=== PATIENT | male | born 1945 | race Caucasian/White ===

== ENCOUNTER 2024-02-08 22:49 | Outpatient (BNV) | payer MEDICARE, SELFPAY | END 2024-02-09 08:00 | PROVIDERS: Admitting Provider Clinical Nurse Specialist Psychiatric/Mental Health; PCP Internal Medicine; Visit Provider Internal Medicine | DX: R00.1 Bradycardia, unspecified (principal) | CPT/HCPCS: 93010 ==

== ENCOUNTER 2024-02-08 22:49 | Inpatient (IN) | payer MEDICARE, SELFPAY ==
[2024-02-09 01:17] LABS: Glucose, Whole Blood 114 mg/dL (60-115)
[2024-02-09 01:21] VITALS: BP 134/73; PULSE 62; RESP 18; TEMP 36; O2SAT 99
[2024-02-09 01:24] VITALS: BMI 19.8
--- NOTE | 2024-02-09 01:44 | PC.ADMIT ---
Ad[facility] these 79 years [facility] accompanied by ambulance staff. Pt signed the CV. Patient is oriented to the unit, staff and room. Pt is alert and oriented to person, place and year and forgets the date. Pt is pleasant on approached, cooperative w/ the admission process. Pt denies SI/HI/anxiety/depression/delusions/hallucinations/paranoia/pain and feels safe in the unit. Pt said he wears eyeglasses for reading but did not bring it here. Pt has his own teeth. Pt has an old bruise in the L. arm, small red scab area on his middle back and buttocks pink, no open areas, No edema noted on lower extremities. In between the 1st and 2nd finger there is a big soft hump area, no redness and no pain. Pt said he had that for 15 yrs already. Pt denies SOB/ cough. SPO2 IS 99% at RA. Pt. w/ extensive complicated medical history of coronary artery disease status post CABG, complete heart block status post PPM, history of gangrenous cholecystitis status post laparoscopic partial cholecystectomy complicated by C. 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 Per report pt previously had episode of psychosis w/ [facility] stay. Was discharged on Risperidone and eventually stopped taking this and over the last few weeks home health nurses have noticed that he has been off he has been paranoid stating that people are recording him and that the neighbors are getting into their stuff. Pt ambulates independently using a walker w/ unsteady gait at times. Pt said he fell twice at home recently Pt said he needs assist only in bathing and goes to the BR by himself. We'll continue to monitor patient.
[2024-02-09 07:40] VITALS: BP 147/90; PULSE 75; RESP 16; TEMP 36.1; O2SAT 99
--- NOTE | 2024-02-09 08:00 | ECG_ITS ---
Test Reason : new admit Blood Pressure : / mmHG Vent. Rate : 059 BPM Atrial Rate : 059 BPM P-R Int : 160 ms QRS Dur : 130 ms QT Int : 484 ms P-R-T Axes : 058 -40 053 degrees QTc Int : 479 ms Sinus bradycardia Left axis deviation Right bundle branch block Inferior infarct , age undetermined Abnormal ECG No previous ECGs available Referred By: Christina Jimenez Electronically Signed By:TEGAN RODRIGEZ
[2024-02-09 09:16] LABS: Glucose, Whole Blood 125 mg/dL (60-115)
--- NOTE | 2024-02-09 13:51 | P.HPPS_ITS ---
[facility] Date of Service: 02/09/24 Chief Complaint: Unspecified Schizophrenia Spectrum and other Psych Sources of Information: patient interviewed, chart reviewed and crisis/core team assessment reviewed HPI Subjective Notes: Torres Warning and Conditional Voluntary Narrative: The patient is a 79-year-old male, single, with no children, living with a friend, referred from the emergency room of [facility] after his friend brought him to the emergency room. Apparently the patient was admitted into the hospital for psychosis and he had been on compliant with Risperdal. According to the crisis assessment the patient complained of paranoia, auditory hallucinations stating that people are recording him. He was assessed by the crisis team and transferring to this facility for psychiatric stabilization. According to the crisis assessment, his friend Salvador, was advocating for a geriatric psychiatric admission for treatment and diagnosis clarification. The patient has several medical comorbidities such as CVA, diabetes, VPA and past history of cardiovascular surgery several years ago. During the intake interview, the patient was very pleasant, cooperative but he looks confused. He stated that he was brought to the emergency room by a friend, he does not know exactly why he was brought here. At the moment of the intake interview the patient adamantly denies auditory hallucinations, visual hallucinations or paranoia but he looks internally preoccupied. The patient was able to contract for safety, he was a very poor historian but we will try to get more collateral information. He understood why he was here and he understood torres warning after I explained him. Past Psychiatric History: According to the crisis assessment, he had 2 prior psychiatric admissions 1 10 years ago at [facility] and 5 years ago [facility]. Also he had a geriatric unit admission. Apparently his mental status deteriorated after the open surgery that he had 5 years ago. Medical Evaluation Reviewed: Yes [facility] Narrative: History of CVA Diabetes BPH Family History: As per Salvador, the patient's family has history of Alzheimer's Social History: The patient has never been , he lives with his girlfriend and adult girlfriend's son Salvador who is the primary caregiver. 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 He has never been no children no social support provided by the family. Substance History: Denies Trauma History: Denies Diagnostics Vital Signs (24Hr): Vital Signs - 24 hr 02/09/24 01:21 02/09/24 07:40 Temperature 96.8 F 96.9 F Pulse Rate 62 75 Respiratory Rate 18 16 Blood Pressure 134/73 147/90 H Pulse Oximetry 99 99 Oxygen Delivery Method Room Air Room Air BMI result Body Mass Index 19.8 Labs Labs: Laboratory Results - last 48 hr 02/09/24 02/09/24 01:06 09:13 POC Glucose 114 125 H Meds/Allergies Meds Home Medications ?Medication ?Instructions ?Recorded ?Confirmed ?Type acetaminophen 650 mg tablet 650 mg PO Q8H PRN Pain 02/09/24 02/09/24 History amoxicillin 875 mg-potassium 1 tab PO Q12H 02/09/24 02/09/24 History clavulanate 125 mg tablet apixaban 5 mg tablet (Eliquis) 5 mg PO BID 02/09/24 02/09/24 History aspirin 81 mg tablet 81 mg PO DAILY 02/09/24 02/09/24 History atorvastatin 40 mg tablet 40 mg PO DAILY 02/09/24 02/09/24 History carvedilol 12.5 mg tablet 12.5 mg PO DAILY 02/09/24 02/09/24 History docusate sodium 100 mg capsule 100 mg PO BID PRN Constipation 02/09/24 02/09/24 History ibuprofen 400 mg tablet 400 mg PO Q8H PRN Pain (Scale 02/09/24 02/09/24 History Score 4-6) lorazepam 1 mg tablet (Ativan) 1 mg PO TID PRN Anxiety 02/09/24 02/09/24 History melatonin 3 mg tablet 9 mg PO BEDTIME PRN Insomnia 02/09/24 02/09/24 History risperidone 0.5 mg tablet 0.5 mg PO BID 02/09/24 02/09/24 History sennosides 8.6 mg tablet (senna) 8.6 mg PO BID PRN Constipation 02/09/24 02/09/24 History sertraline 25 mg tablet 25 mg PO DAILY 02/09/24 02/09/24 History sertraline 50 mg tablet 50 mg PO DAILY 02/09/24 02/09/24 History Allergies Allergies Allergy/AdvReac Type Severity Reaction Status Date / Time No Known Allergies Allergy Verified 02/09/24 02:40 Mental Status Exam Mental Status Exam Patient Appearance: Appropriate Patient Orientation: Person and Situation Level of Consciousness: Awake and Appropriate Patient Behavior: Guarded and Passive Mood Description: Withdrawn Affect Description: Constricted Patient Cognition Impaired: Yes Ability to Follow Directions: Good Speech Pattern: Clear Hallucinations: None Delusions: Paranoid Ideation and Ideas of Reference Thought Process: Distracted and Slowed Thinking Thought Content: positive for Reading and positive for Poverty of Content Judgement: Fair Assessment & Plan Assessment & Plan (1) Psychosis: Status: Acute Code(s): F29 - Unspecified psychosis not due to a substance or known physiological condition (2) Dementia: Status: Acute Code(s): F03.90 - Unspecified dementia, unspecified severity, without behavioral disturbance, psychotic disturbance, mood disturbance, and anxiety Plan The patient is an elderly male with a past history of psychosis in the past, dementia and several medical comorbidities the was brought to the emergency room by his closed caregivers explaining that he relapse on psychosis due to noncompliance with Risperdal. He was assessed by crisis and transferring to this facility for psychiatric stabilization. Plan 1. Gather collateral information, the patient is a very poor historian but he is able to contract for safety and he signed a conditional voluntary. 2. Keep on 50 minute checks since the patient was able to contract for safety. 3. Continue with medical workout. 4. Reassessment with results. 5. I review his home meds and he has not on any Risperdal. We start with a slow titration of Risperdal 0.5 p.o. b.i.d. to target psychosis Patient educated on: diagnosis Reason for continued inpatient stay Substantial Risk for: inability to function, rapid decompensation and med/psych decompensation Statement Statement: I have reviewed the history and physical and performed a pertinent examination on my patient. No changes have occurred unless specified. If the History and Physical was not performed prior to admission, the Hospitalist's service will be consulted for completing the admission physical. Time Spent With Patient Time: Total time managing care of this patient today __45__ minutes.
--- NOTE | 2024-02-09 18:05 | HO.PM.IMCN ---
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 Patient apparently had been complaining of auditory hallucinations and paranoia, thinking that he was being recorded. Medical consult for admission H&P. ?Patient has no acute medical complaints at this time. Was calm and cooperative. Denies chest pain/pressure, palpitations. No shortness of breath. Denied fever, chills, nausea, vomiting, abdominal pain. No change to bowel or bladder habits. Denied headache or acute vision changes. EKG reviewed which showed sinus bradycardia of 59 with RBBB and no signs of significant ST elevations or depressions. Review of Systems Review of Systems: Patient has no acute medical complaints at this time. [facility] Medical History (Updated 02/09/24 @ 19:00 by ALEJANDRO Queen) Depression Anxiety Empyema FH: cholecystectomy Cholecystitis CAD (coronary artery disease) Complete heart block Surgical History (Updated 02/09/24 @ 18:59 by ALEJANDRO Queen) S/P CABG (coronary artery bypass graft) Status post cardiac pacemaker procedure Social History Household Members: Friend(s) Housing: House Do you presently have visiting nurse or other home services: No Patient Tobacco Use Status: Never used Tobacco Smoked in Last 30 Days: No e-Cigarette/Vaping Use: Never Used Patient Interested in Nicotine Replacement: No Patient Given Instructions on How to Stop Smoking: No Second Hand Smoke Exposure: No Use of substances other than those prescribed or required for medical reasons: No Substance Use Type: Unknown Currently Displaying Signs/Symptoms of Drug Intoxication Withdrawal: No Any prior treatment program specific to substance use: No Have you been hit, kicked, punched, or otherwise hurt by someone within the past year? If so, by whom?: No Do you feel safe in your current relationship?: Yes Is there a partner from a previous relationship who is making you feel unsafe now?: No Are you made to feel afraid or neglected: No Advance Directives: No Advance Directives Information Provided: No Do you have thoughts of harming others: None Do you have a plan to hurt others: No Plan Recently lost weight without trying: No Eating poorly because of decreased appetite: No Nutrition Risks: No Nutritional Risk Poor oral hygiene: No service: No Sexual orientation: Straight/Heterosexual Meds Allergies Allergy/AdvReac Type Severity Reaction Status Date / Time No Known Allergies Allergy Verified 02/09/24 02:40 Active Medications: Current Medications Al Hydroxide/Mg Hydroxide (Magnesium Hydrox/Alum Hydrox 30 Ml Oral.Susp) 30 ml PO Q6H PRN PRN Reason: Heartburn/Nausea Apixaban (Apixaban 5 Mg Tablet) 5 mg PO BID ETHAN Aspirin (Aspirin Enteric Coated 81 Mg Tablet.Dr) 81 mg PO DAILY ETHAN Atorvastatin Calcium (Atorvastatin Calcium 40 Mg Tablet) 40 mg PO DAILY ETHAN Carvedilol (Carvedilol 12.5 Mg Tablet) 12.5 mg PO DAILY ETHAN; Protocol Docusate Sodium (Docusate Sodium 100 Mg Capsule) 100 mg PO BID PRN PRN Reason: Constipation Lorazepam (Lorazepam 0.5 Mg Tablet) 0.5 mg PO Q8H PRN PRN Reason: Anxiety Lorazepam (Lorazepam 0.5 Mg Tablet) 0.5 mg PO TID PRN PRN Reason: Anxiety Melatonin (Melatonin 3 Mg Tablet) 3 mg PO BEDTIME ETHAN Melatonin (Melatonin 3 Mg Tablet) 9 mg PO BEDTIME PRN PRN Reason: Insomnia Nitroglycerin (Nitroglycerin 0.4 Mg Tab.Subl) 0.4 mg SUBLINGUAL Q5MX3 PRN PRN Reason: Angina Risperidone (Risperidone 0.5 Mg Tablet) 0.5 mg PO BID ETHAN Senna (Sennosides 8.6 Mg Tablet) 8.6 mg PO BID PRN PRN Reason: Constipation Sertraline HCl (Sertraline Hcl 25 Mg Tablet) 25 mg PO DAILY ETHAN Trazodone HCl (Trazodone Hcl 25 Mg Halftab) 25 mg PO BEDTIME MRX1 PRN PRN Reason: Insomnia Home Medications ?Medication ?Instructions ?Recorded ?Confirmed ?Last Taken ?Type acetaminophen 650 mg tablet 650 mg PO Q8H PRN Pain 02/09/24 02/09/24 Unknown History amoxicillin 875 mg-potassium 1 tab PO Q12H 02/09/24 02/09/24 Unknown History clavulanate 125 mg tablet apixaban 5 mg tablet (Eliquis) 5 mg PO BID 02/09/24 02/09/24 02/08/24 History aspirin 81 mg tablet 81 mg PO DAILY 02/09/24 02/09/24 02/08/24 History atorvastatin 40 mg tablet 40 mg PO DAILY 02/09/24 02/09/24 02/08/24 History carvedilol 12.5 mg tablet 12.5 mg PO DAILY 02/09/24 02/09/24 02/08/24 History docusate sodium 100 mg capsule 100 mg PO BID PRN Constipation 02/09/24 02/09/24 Unknown History ibuprofen 400 mg tablet 400 mg PO Q8H PRN Pain (Scale 02/09/24 02/09/24 Unknown History Score 4-6) lorazepam 1 mg tablet (Ativan) 1 mg PO TID PRN Anxiety 02/09/24 02/09/24 02/08/24 History melatonin 3 mg tablet 9 mg PO BEDTIME PRN Insomnia 02/09/24 02/09/24 02/07/24 History risperidone 0.5 mg tablet 0.5 mg PO BID 02/09/24 02/09/24 02/08/24 History sennosides 8.6 mg tablet (senna) 8.6 mg PO BID PRN Constipation 02/09/24 02/09/24 Unknown History sertraline 25 mg tablet 25 mg PO DAILY 02/09/24 02/09/24 02/08/24 History sertraline 50 mg tablet 50 mg PO DAILY 02/09/24 02/09/24 02/09/24 01:03 History Physical Exam Vital Signs and Narrative: Vital Signs: Last Vital Signs Temp 96.9 F 02/09/24 07:40 Pulse 75 02/09/24 07:40 Resp 16 02/09/24 07:40 BP 147/90 H 02/09/24 07:40 Pulse Ox 99 02/09/24 07:40 O2 Del Method Room Air 02/09/24 07:40 BMI result Body Mass Index 19.8 General: AOx3, no acute distress Resp: CTA bilaterally CVS: S1, S2, RRR GI: +BS, NT, no distention Skin: Warm, dry Neuro: Cranial nerves II-XII grossly intact bilaterally. 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 Patient apparently had been complaining of auditory hallucinations and paranoia, thinking that he was being recorded. Medical consult for admission H&P. ?Patient has no acute medical complaints at this time. Mood disorder Plan as per Psychiatry Chronic aortic graft infection Patient not a candidate for surgical intervention On lifelong suppression with antibiotics Continue Augmentin CAD/HLD Continue aspirin, statin Anticoagulation Unclear why pt is on Eliquis from chart and pt review Continue Eliquis Thank you for allowing us to participate in the care of this patient. Signing off at this time. Please re-consult if any acute complaints or issues arise.
[2024-02-09 20:00] VITALS: BP 155/83; PULSE 70; RESP 18; TEMP 36.4; O2SAT 99
[2024-02-09 20:24] LABS: Glucose, Whole Blood 125 mg/dL (60-115)
[2024-02-09] MEDS: Apixaban 5 MG TABLET PO (20:33)
[2024-02-09] MEDS: Melatonin 3 MG TABLET PO (20:33)
[2024-02-09] MEDS: risperiDONE 0.5 MG TABLET PO (20:33)
[2024-02-10 08:00] VITALS: BP 136/77; PULSE 84; RESP 18; O2SAT 99
[2024-02-10] MEDS: Sertraline HCL 25 MG TABLET PO (08:23)
[2024-02-10] MEDS: Aspirin Enteric Coated 81 MG TABLET.DR PO (08:23)
[2024-02-10 08:24] VITALS: BP 136/77; PULSE 84
[2024-02-10] MEDS: Apixaban 5 MG TABLET PO ×2 (08:24→20:40)
[2024-02-10] MEDS: carvediloL 12.5 MG TABLET PO (08:24)
[2024-02-10] MEDS: risperiDONE 0.5 MG TABLET PO (08:24)
[2024-02-10] MEDS: Amoxicillin/Potassium Clav 875 MG TABLET PO ×2 (08:24→20:40)
[2024-02-10] MEDS: Atorvastatin Calcium 40 MG TABLET PO (08:24)
--- NOTE | 2024-02-10 09:00 | HO.PSYCHPN ---
Subjective Subjective Date of Service: 02/10/24 Reason For Visit: Unspecified Schizophrenia Spectrum and other Psych Subjective Notes: Conditional Voluntary Interim History: The nursing staff reported the patient had been confused, paranoid, he verbalized to the night nurse that I do not trust you. He slept well. We found out that he is on chronic antibiotics for infection on his chronic cardiac infection. On interview the patient denies new symptoms, he looks internally preoccupied I am increasing Risperdal up to 1 mg p.o. b.i.d.. Mental Status Exam Mental Status Exam Patient Appearance: Appropriate Patient Orientation: Person Level of Consciousness: Awake Patient Behavior: Guarded and Passive Mood Description: Withdrawn Affect Description: Constricted Patient Cognition Impaired: Yes Ability to Follow Directions: Good Speech Pattern: Clear Hallucinations: None Delusions: Paranoid Ideation and Ideas of Reference Thought Process: Distracted and Slowed Thinking Thought Content: positive for [place] and positive for Poverty of Content Judgement: Fair Diagnostics Vital Signs (24Hr): Vital Signs - 24 hr 02/09/24 20:00 02/10/24 08:00 02/10/24 08:00 Temperature 97.5 F Pulse Rate 70 84 84 Respiratory Rate 18 18 18 Blood Pressure 155/83 H 136/77 136/77 Pulse Oximetry 99 99 99 Oxygen Delivery Method Room Air Room Air Room Air 02/10/24 08:24 Temperature Pulse Rate 84 Respiratory Rate Blood Pressure 136/77 Pulse Oximetry Oxygen Delivery Method BMI result Body Mass Index 19.8 Labs Labs: Laboratory Results - last 48 hr 02/09/24 02/09/24 02/09/24 01:06 09:13 20:11 POC Glucose 114 125 H 125 H Medications Medications Current Medications Al Hydroxide/Mg Hydroxide (Magnesium Hydrox/Alum Hydrox 30 Ml Oral.Susp) 30 ml PO Q6H PRN PRN Reason: Heartburn/Nausea Amoxicillin/Clavulanate Potassium (Amoxicillin/Potassium Clav 875 Mg Tablet) 875 mg PO Q12H [facility] Last Admin: 02/10/24 08:24 Dose: 875 mg Apixaban (Apixaban 5 Mg Tablet) 5 mg PO BID [facility] Last Admin: 02/10/24 08:24 Dose: 5 mg Aspirin (Aspirin Enteric Coated 81 Mg Tablet.) 81 mg PO DAILY [facility] Last Admin: 02/10/24 08:23 Dose: 81 mg Atorvastatin Calcium (Atorvastatin Calcium 40 Mg Tablet) 40 mg PO DAILY [facility] Last Admin: 02/10/24 08:24 Dose: 40 mg Carvedilol (Carvedilol 12.5 Mg Tablet) 12.5 mg PO DAILY [facility]; Protocol Last Admin: 02/10/24 08:24 Dose: 12.5 mg Docusate Sodium (Docusate Sodium 100 Mg Capsule) 100 mg PO BID PRN PRN Reason: Constipation Lorazepam (Lorazepam 0.5 Mg Tablet) 0.5 mg PO Q8H PRN PRN Reason: Anxiety Lorazepam (Lorazepam 0.5 Mg Tablet) 0.5 mg PO TID PRN PRN Reason: Anxiety Melatonin (Melatonin 3 Mg Tablet) 3 mg PO BEDTIME [facility] Last Admin: 02/09/24 20:33 Dose: 3 mg Melatonin (Melatonin 3 Mg Tablet) 9 mg PO BEDTIME PRN PRN Reason: Insomnia Nitroglycerin (Nitroglycerin 0.4 Mg Tab.Subl) 0.4 mg SUBLINGUAL Q5MX3 PRN PRN Reason: Angina Risperidone (Risperidone 0.5 Mg Tablet) 0.5 mg PO BID [facility] Last Admin: 02/10/24 08:24 Dose: 0.5 mg Senna (Sennosides 8.6 Mg Tablet) 8.6 mg PO BID PRN PRN Reason: Constipation Sertraline HCl (Sertraline Hcl 25 Mg Tablet) 25 mg PO DAILY [facility] Last Admin: 02/10/24 08:23 Dose: 25 mg Trazodone HCl (Trazodone Hcl 25 Mg Halftab) 25 mg PO BEDTIME MRX1 PRN PRN Reason: Insomnia Allergies Allergies Allergy/AdvReac Type Severity Reaction Status Date / Time No Known Allergies Allergy Verified 02/09/24 02:40 Assessment & Plan Assessment & Plan (1) Medical clearance for psychiatric admission: Status: Acute Code(s): Z00.8 - Encounter for other general examination Plan Pt is a 79-year-old male with a complicated PMH significant for?CAD s/p CABG, 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 Patient apparently had been complaining of auditory hallucinations and paranoia, thinking that he was being recorded. Medical consult for admission H&P. ?Patient has no acute medical complaints at this time. Mood disorder Plan as per Psychiatry Chronic aortic graft infection Patient not a candidate for surgical intervention On lifelong suppression with antibiotics Continue Augmentin CAD/HLD Continue aspirin, statin Anticoagulation Unclear why pt is on Eliquis from chart and pt review Continue Eliquis Plan 1. Gather collateral information. 2. Continue with the titration of Risperdal increased up to 1 mg p.o. b.i.d. on February 09. 3. Continue with medical treatment. Reason for continued inpatient stay Substantial Risk for: inability to function, rapid decompensation and med/psych decompensation Time Spent With Patient Time: Total time managing care of this patient today _20___ minutes.
[2024-02-10 11:08] LABS: Glucose, Whole Blood 117 mg/dL (60-115)
[2024-02-10 19:48] LABS: Glucose, Whole Blood 117 mg/dL (60-115)
[2024-02-10 20:00] VITALS: BP 124/57; PULSE 68; RESP 18; TEMP 36.4; O2SAT 98
[2024-02-10] MEDS: Melatonin 3 MG TABLET PO (20:40)
[2024-02-10] MEDS: risperiDONE 1 MG TABLET PO (20:40)
[2024-02-11 06:11] LABS: Glucose, Whole Blood 120 mg/dL (60-115)
[2024-02-11 08:00] VITALS: BP 120/64; PULSE 73; RESP 18; TEMP 36.4; O2SAT 97
[2024-02-11 08:30] VITALS: BP 120/64; PULSE 73
[2024-02-11] MEDS: Amoxicillin/Potassium Clav 875 MG TABLET PO ×2 (08:30→20:00)
[2024-02-11] MEDS: Sertraline HCL 25 MG TABLET PO (08:30)
[2024-02-11] MEDS: Atorvastatin Calcium 40 MG TABLET PO (08:30)
[2024-02-11] MEDS: risperiDONE 1 MG TABLET PO ×2 (08:30→20:00)
[2024-02-11] MEDS: carvediloL 12.5 MG TABLET PO (08:30)
[2024-02-11] MEDS: Aspirin Enteric Coated 81 MG TABLET.DR PO (08:30)
[2024-02-11] MEDS: Apixaban 5 MG TABLET PO ×2 (08:30→19:59)
--- NOTE | 2024-02-11 09:46 | P.PNPSI_ITS ---
Subjective Subjective Date of Service: 02/11/24 Reason For Visit: Unspecified Schizophrenia Spectrum and other Psych Subjective Notes: Conditional Voluntary Interim History: The nursing staff reported the patient had been isolative, compliant with meds very quiet. On interview the patient denies new symptoms he looks internally preoccupied. No side effects with increase of Risperdal. Mental Status Exam Mental Status Exam Patient Appearance: Unkempt Patient Orientation: Person and Situation Level of Consciousness: Awake Patient Behavior: Guarded and Passive Mood Description: Withdrawn Affect Description: Constricted Patient Cognition Impaired: Yes Ability to Follow Directions: Good Speech Pattern: Clear Hallucinations: None Delusions: Paranoid Ideation and Ideas of Reference Thought Process: Distracted and Slowed Thinking Thought Content: positive for [place] and positive for Poverty of Content Judgement: Fair Diagnostics Vital Signs (24Hr): Vital Signs - 24 hr 02/10/24 20:00 02/11/24 08:00 02/11/24 08:00 Temperature 97.5 F 97.5 F 97.5 F Pulse Rate 68 73 73 Respiratory Rate 18 18 18 Blood Pressure 124/57 L 120/64 120/64 Pulse Oximetry 98 97 97 Oxygen Delivery Method Room Air Room Air Room Air 02/11/24 08:30 Temperature Pulse Rate 73 Respiratory Rate Blood Pressure 120/64 Pulse Oximetry Oxygen Delivery Method BMI result Body Mass Index 19.8 Labs Labs: Laboratory Results - last 48 hr 02/09/24 02/10/24 02/10/24 20:11 06:09 19:40 POC Glucose 125 H 117 H 117 H 02/11/24 05:47 POC Glucose 120 H Medications Medications Current Medications Al Hydroxide/Mg Hydroxide (Magnesium Hydrox/Alum Hydrox 30 Ml Oral.Susp) 30 ml PO Q6H PRN PRN Reason: Heartburn/Nausea Amoxicillin/Clavulanate Potassium (Amoxicillin/Potassium Clav 875 Mg Tablet) 875 mg PO Q12H [facility] Last Admin: 02/11/24 08:30 Dose: 875 mg Apixaban (Apixaban 5 Mg Tablet) 5 mg PO BID [facility] Last Admin: 02/11/24 08:30 Dose: 5 mg Aspirin (Aspirin Enteric Coated 81 Mg Tablet.) 81 mg PO DAILY [facility] Last Admin: 02/11/24 08:30 Dose: 81 mg Atorvastatin Calcium (Atorvastatin Calcium 40 Mg Tablet) 40 mg PO DAILY [facility] Last Admin: 05/05/24 08:30 Dose: 40 mg Carvedilol (Carvedilol 12.5 Mg Tablet) 12.5 mg PO DAILY [facility]; Protocol Last Admin: 02/11/24 08:30 Dose: 12.5 mg Docusate Sodium (Docusate Sodium 100 Mg Capsule) 100 mg PO BID PRN PRN Reason: Constipation Lorazepam (Lorazepam 0.5 Mg Tablet) 0.5 mg PO Q8H PRN PRN Reason: Anxiety Lorazepam (Lorazepam 0.5 Mg Tablet) 0.5 mg PO TID PRN PRN Reason: Anxiety Melatonin (Melatonin 3 Mg Tablet) 3 mg PO BEDTIME [facility] Last Admin: 02/10/24 20:40 Dose: 3 mg Melatonin (Melatonin 3 Mg Tablet) 9 mg PO BEDTIME PRN PRN Reason: Insomnia Nitroglycerin (Nitroglycerin 0.4 Mg Tab.Subl) 0.4 mg SUBLINGUAL Q5MX3 PRN PRN Reason: Angina Risperidone (Risperidone 1 Mg Tablet) 1 mg PO BID [facility] Last Admin: 02/11/24 08:30 Dose: 1 mg Senna (Sennosides 8.6 Mg Tablet) 8.6 mg PO BID PRN PRN Reason: Constipation Sertraline HCl (Sertraline Hcl 25 Mg Tablet) 25 mg PO DAILY [facility] Last Admin: 02/11/24 08:30 Dose: 25 mg Trazodone HCl (Trazodone Hcl 25 Mg Halftab) 25 mg PO BEDTIME MRX1 PRN PRN Reason: Insomnia Allergies Allergies Allergy/AdvReac Type Severity Reaction Status Date / Time No Known Allergies Allergy Verified 02/09/24 02:40 Assessment & Plan Assessment & Plan (1) Medical clearance for psychiatric admission: Status: Acute Code(s): Z00.8 - Encounter for other general examination Plan Pt is a 79-year-old male with a complicated PMH significant for?CAD s/p CABG, 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 Patient apparently had been complaining of auditory hallucinations and paranoia, thinking that he was being recorded. Medical consult for admission H&P. ?Patient has no acute medical complaints at this time. Mood disorder Plan as per Psychiatry Chronic aortic graft infection Patient not a candidate for surgical intervention On lifelong suppression with antibiotics Continue Augmentin CAD/HLD Continue aspirin, statin Anticoagulation Unclear why pt is on Eliquis from chart and pt review Continue Eliquis Plan 1. Gather collateral information. 2. Continue with the titration of Risperdal increased up to 1 mg p.o. b.i.d. on February 09. 3. Continue with medical treatment. Reason for continued inpatient stay Substantial Risk for: inability to function, rapid decompensation and med/psych decompensation Time Spent With Patient Time: Total time managing care of this patient today _20___ minutes.
[2024-02-11] MEDS: Melatonin 3 MG TABLET PO (19:59)
[2024-02-11 20:00] VITALS: BP 104/56; PULSE 79; RESP 16; TEMP 36.3; O2SAT 98
[2024-02-11 22:06] LABS: Glucose, Whole Blood 135 mg/dL (60-115)
[2024-02-12 06:34] LABS: Glucose, Whole Blood 104 mg/dL (60-115)
[2024-02-12 08:00] VITALS: BP 129/79; PULSE 81; RESP 18; TEMP 36.1; O2SAT 100
[2024-02-12] MEDS: Amoxicillin/Potassium Clav 875 MG TABLET PO ×2 (08:36→20:22)
[2024-02-12] MEDS: Sertraline HCL 25 MG TABLET PO (08:37)
[2024-02-12] MEDS: Aspirin Enteric Coated 81 MG TABLET.DR PO (08:37)
[2024-02-12] MEDS: Atorvastatin Calcium 40 MG TABLET PO (08:37)
[2024-02-12] MEDS: Apixaban 5 MG TABLET PO ×2 (08:37→20:22)
[2024-02-12] MEDS: risperiDONE 1 MG TABLET PO (08:37)
[2024-02-12] MEDS: carvediloL 12.5 MG TABLET PO (08:37)
--- NOTE | 2024-02-12 10:38 | HO.PSYCHPN ---
Subjective Subjective Date of Service: 02/12/24 Reason For Visit: Unspecified Schizophrenia Spectrum and other Psych Subjective Notes: Conditional Voluntary Interim History: The nursing staff reported that patient had been in his room most of the day, fasting blood sugars are okay we are going to discontinue the point of care. On interview the patient denies new symptoms, internally preoccupied but easily redirectable. Mental Status Exam Mental Status Exam Patient Appearance: Appropriate Patient Orientation: Person and Situation Level of Consciousness: Awake Patient Behavior: Guarded and Passive Mood Description: Withdrawn Affect Description: Constricted Patient Cognition Impaired: Yes Ability to Follow Directions: Good Speech Pattern: Clear Hallucinations: None Delusions: Not Present Thought Process: Distracted and Slowed Thinking Thought Content: positive for [place] and positive for Poverty of Content Judgement: Fair Diagnostics Vital Signs (24Hr): Vital Signs - 24 hr 02/11/24 20:00 02/12/24 08:00 Temperature 97.3 F 97.0 F Pulse Rate 79 81 Respiratory Rate 16 18 Blood Pressure 104/56 L 129/79 Pulse Oximetry 98 100 Oxygen Delivery Method Room Air Room Air BMI result Body Mass Index 19.8 Labs Labs: Laboratory Results - last 48 hr 02/10/24 02/10/24 02/11/24 06:09 19:40 05:47 POC Glucose 117 H 117 H 120 H 02/11/24 02/12/24 22:01 06:28 POC Glucose 135 H 104 Medications Medications Current Medications Al Hydroxide/Mg Hydroxide (Magnesium Hydrox/Alum Hydrox 30 Ml Oral.Susp) 30 ml PO Q6H PRN PRN Reason: Heartburn/Nausea Amoxicillin/Clavulanate Potassium (Amoxicillin/Potassium Clav 875 Mg Tablet) 875 mg PO Q12H [facility] Last Admin: 02/12/24 08:36 Dose: 875 mg Apixaban (Apixaban 5 Mg Tablet) 5 mg PO BID [facility] Last Admin: 02/12/24 08:37 Dose: 5 mg Aspirin (Aspirin Enteric Coated 81 Mg Tablet.) 81 mg PO DAILY [facility] Last Admin: 02/12/24 08:37 Dose: 81 mg Atorvastatin Calcium (Atorvastatin Calcium 40 Mg Tablet) 40 mg PO DAILY [facility] Last Admin: 02/12/24 08:37 Dose: 40 mg Carvedilol (Carvedilol 12.5 Mg Tablet) 12.5 mg PO DAILY [facility]; Protocol Last Admin: 02/12/24 08:37 Dose: 12.5 mg Docusate Sodium (Docusate Sodium 100 Mg Capsule) 100 mg PO BID PRN PRN Reason: Constipation Lorazepam (Lorazepam 0.5 Mg Tablet) 0.5 mg PO Q8H PRN PRN Reason: Anxiety Lorazepam (Lorazepam 0.5 Mg Tablet) 0.5 mg PO TID PRN PRN Reason: Anxiety Melatonin (Melatonin 3 Mg Tablet) 3 mg PO BEDTIME [facility] Last Admin: 02/11/24 19:59 Dose: 3 mg Melatonin (Melatonin 3 Mg Tablet) 9 mg PO BEDTIME PRN PRN Reason: Insomnia Nitroglycerin (Nitroglycerin 0.4 Mg Tab.Subl) 0.4 mg SUBLINGUAL Q5MX3 PRN PRN Reason: Angina Risperidone (Risperidone 1 Mg Tablet) 1 mg PO BID [facility] Last Admin: 02/12/24 08:37 Dose: 1 mg Senna (Sennosides 8.6 Mg Tablet) 8.6 mg PO BID PRN PRN Reason: Constipation Sertraline HCl (Sertraline Hcl 25 Mg Tablet) 25 mg PO DAILY [facility] Last Admin: 02/12/24 08:37 Dose: 25 mg Trazodone HCl (Trazodone Hcl 25 Mg Halftab) 25 mg PO BEDTIME MRX1 PRN PRN Reason: Insomnia Allergies Allergies Allergy/AdvReac Type Severity Reaction Status Date / Time No Known Allergies Allergy Verified 02/09/24 02:40 Assessment & Plan Assessment & Plan (1) Medical clearance for psychiatric admission: Status: Acute Code(s): Z00.8 - Encounter for other general examination Plan Pt is a 79-year-old male with a complicated PMH significant for?CAD s/p CABG, 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 Patient apparently had been complaining of auditory hallucinations and paranoia, thinking that he was being recorded. Medical consult for admission H&P. ?Patient has no acute medical complaints at this time. Mood disorder Plan as per Psychiatry Chronic aortic graft infection Patient not a candidate for surgical intervention On lifelong suppression with antibiotics Continue Augmentin CAD/HLD Continue aspirin, statin Anticoagulation Unclear why pt is on Eliquis from chart and pt review Continue Eliquis Plan 1. Gather collateral information. 2. Continue with the titration of Risperdal increased up to 1 mg p.o. b.i.d. on February 09. 3. Continue with medical treatment. Reason for continued inpatient stay Substantial Risk for: inability to function, rapid decompensation and med/psych decompensation Time Spent With Patient Time: Total time managing care of this patient today ___20_ minutes.
[2024-02-12 20:00] VITALS: BP 132/63; PULSE 80; RESP 18; TEMP 36; O2SAT 98
[2024-02-12 20:02] LABS: Glucose, Whole Blood 92 mg/dL (60-115)
[2024-02-12] MEDS: Melatonin 3 MG TABLET PO (20:23)
[2024-02-12] MEDS: risperiDONE 2 MG TABLET PO (20:23)
[2024-02-13 06:24] LABS: Glucose, Whole Blood 109 mg/dL (60-115)
[2024-02-13 10:02] VITALS: BP 122/64; PULSE 75; RESP 18; TEMP 35.8; O2SAT 97
[2024-02-13] MEDS: Atorvastatin Calcium 40 MG TABLET PO (10:02)
[2024-02-13] MEDS: Aspirin Enteric Coated 81 MG TABLET.DR PO (10:02)
[2024-02-13] MEDS: Sertraline HCL 25 MG TABLET PO (10:02)
[2024-02-13] MEDS: Apixaban 5 MG TABLET PO ×2 (10:02→20:17)
[2024-02-13] MEDS: Amoxicillin/Potassium Clav 875 MG TABLET PO ×2 (10:02→20:17)
[2024-02-13] MEDS: carvediloL 12.5 MG TABLET PO (10:02)
--- NOTE | 2024-02-13 12:03 | P.PNPSI_ITS ---
Subjective Subjective Date of Service: 02/13/24 Reason For Visit: Unspecified Schizophrenia Spectrum and other Psych Subjective Notes: Conditional Voluntary Interim History: The nursing staff reported the patient stayed in his room most of the time, cooperative looks tired. He slept 8 hours. The social work assistant reported that healthcare proxy is coming today to sign releases for assisted living facilities. The occupational therapist reported that he scored 4.4 on the [employer] test and 12/30 on the [place] test. It shows mother rated cognitive impairment. On interview the patient denies over-sedation with the change Risperdal only at night. Mental Status Exam Mental Status Exam Patient Appearance: Well Grooomed and Appropriate Patient Orientation: Person and Situation Level of Consciousness: Awake and Appropriate Patient Behavior: Guarded and Passive Mood Description: Withdrawn Affect Description: Constricted Patient Cognition Impaired: Yes Ability to Follow Directions: Good Speech Pattern: Clear Hallucinations: None Delusions: Paranoid Ideation Thought Process: Distracted and Slowed Thinking Thought Content: positive for [place] and positive for Poverty of Content Judgement: Fair Diagnostics Vital Signs (24Hr): Vital Signs - 24 hr 02/12/24 20:00 02/13/24 10:02 02/13/24 10:02 Temperature 96.8 F 96.4 F L Pulse Rate 80 75 75 Respiratory Rate 18 18 Blood Pressure 132/63 122/64 122/64 Pulse Oximetry 98 97 Oxygen Delivery Method Room Air Room Air BMI result Body Mass Index 19.8 Labs Labs: Laboratory Results - last 48 hr 02/11/24 02/12/24 02/12/24 22:01 06:28 19:58 POC Glucose 135 H 104 92 02/13/24 06:20 POC Glucose 109 Medications Medications Current Medications Al Hydroxide/Mg Hydroxide (Magnesium Hydrox/Alum Hydrox 30 Ml Oral.Susp) 30 ml PO Q6H PRN PRN Reason: Heartburn/Nausea Amoxicillin/Clavulanate Potassium (Amoxicillin/Potassium Clav 875 Mg Tablet) 875 mg PO Q12H [facility] Last Admin: 02/13/24 10:02 Dose: 875 mg Apixaban (Apixaban 5 Mg Tablet) 5 mg PO BID [facility] Last Admin: 02/13/24 10:02 Dose: 5 mg Aspirin (Aspirin Enteric Coated 81 Mg Tablet.) 81 mg PO DAILY [facility] Last Admin: 02/13/24 10:02 Dose: 81 mg Atorvastatin Calcium (Atorvastatin Calcium 40 Mg Tablet) 40 mg PO DAILY [facility] Last Admin: 02/13/24 10:02 Dose: 40 mg Carvedilol (Carvedilol 12.5 Mg Tablet) 12.5 mg PO DAILY [facility]; Protocol Last Admin: 02/13/24 10:02 Dose: 12.5 mg Docusate Sodium (Docusate Sodium 100 Mg Capsule) 100 mg PO BID PRN PRN Reason: Constipation Lorazepam (Lorazepam 0.5 Mg Tablet) 0.5 mg PO Q8H PRN PRN Reason: Anxiety Melatonin (Melatonin 3 Mg Tablet) 3 mg PO BEDTIME [facility] Last Admin: 02/12/24 20:23 Dose: 3 mg Melatonin (Melatonin 3 Mg Tablet) 9 mg PO BEDTIME PRN PRN Reason: Insomnia Nitroglycerin (Nitroglycerin 0.4 Mg Tab.Subl) 0.4 mg SUBLINGUAL Q5MX3 PRN PRN Reason: Angina Risperidone (Risperidone 2 Mg Tablet) 2 mg PO BEDTIME [facility] Last Admin: 02/12/24 20:23 Dose: 2 mg Senna (Sennosides 8.6 Mg Tablet) 8.6 mg PO BID PRN PRN Reason: Constipation Sertraline HCl (Sertraline Hcl 25 Mg Tablet) 25 mg PO DAILY [facility] Last Admin: 02/13/24 10:02 Dose: 25 mg Trazodone HCl (Trazodone Hcl 25 Mg Halftab) 25 mg PO BEDTIME MRX1 PRN PRN Reason: Insomnia Allergies Allergies Allergy/AdvReac Type Severity Reaction Status Date / Time No Known Allergies Allergy Verified 02/09/24 02:40 Assessment & Plan Assessment & Plan (1) Medical clearance for psychiatric admission: Status: Acute Code(s): Z00.8 - Encounter for other general examination Plan Pt is a 79-year-old male with a complicated PMH significant for?CAD s/p CABG, 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 Patient apparently had been complaining of auditory hallucinations and paranoia, thinking that he was being recorded. Medical consult for admission H&P. ?Patient has no acute medical complaints at this time. Mood disorder Plan as per Psychiatry Chronic aortic graft infection Patient not a candidate for surgical intervention On lifelong suppression with antibiotics Continue Augmentin CAD/HLD Continue aspirin, statin Anticoagulation Unclear why pt is on Eliquis from chart and pt review Continue Eliquis Plan 1. Gather collateral information. 2. Continue with the titration of Risperdal increased up to 1 mg p.o. b.i.d. on February 09. 3. Continue with medical treatment. Reason for continued inpatient stay Substantial Risk for: inability to function, rapid decompensation and med/psych decompensation Time Spent With Patient Time: Total time managing care of this patient today __20__ minutes.
[2024-02-13 19:49] LABS: Glucose, Whole Blood 132 mg/dL (60-115)
[2024-02-13 20:00] VITALS: BP 127/67; PULSE 75; RESP 18; TEMP 36.4; O2SAT 98
[2024-02-13] MEDS: Melatonin 3 MG TABLET PO (20:17)
[2024-02-13] MEDS: risperiDONE 2 MG TABLET PO (20:18)
[2024-02-14 06:40] LABS: Glucose, Whole Blood 99 mg/dL (60-115)
[2024-02-14 08:00] VITALS: BP 139/69; PULSE 72; RESP 18; TEMP 36.5; O2SAT 99
[2024-02-14 08:29] VITALS: BP 139/69; PULSE 72
[2024-02-14] MEDS: Apixaban 5 MG TABLET PO ×2 (08:29→20:12)
[2024-02-14] MEDS: Amoxicillin/Potassium Clav 875 MG TABLET PO ×2 (08:29→20:11)
[2024-02-14] MEDS: carvediloL 12.5 MG TABLET PO (08:29)
[2024-02-14] MEDS: Sertraline HCL 25 MG TABLET PO (08:29)
[2024-02-14] MEDS: Atorvastatin Calcium 40 MG TABLET PO (08:29)
[2024-02-14] MEDS: Aspirin Enteric Coated 81 MG TABLET.DR PO (08:29)
--- NOTE | 2024-02-14 10:23 | HO.PSYCHPN ---
Subjective Subjective Date of Service: 02/14/24 Reason For Visit: Unspecified Schizophrenia Spectrum and other Psych Subjective Notes: Conditional Voluntary Interim History: The nursing staff reported the patient had been pleasant confused guarded at times quiet with some anxiety. He slept 8 hours. The social service worker reported that Salvador, the son of his girlfriend, his trying to get into care home facility we are having a meeting today at 13:00. On interview the patient denies new symptoms he denies psychosis take symptoms at this point. Mental Status Exam Mental Status Exam Patient Appearance: Appropriate Patient Orientation: Person and Situation Level of Consciousness: Awake and Appropriate Patient Behavior: Guarded and Passive Mood Description: Withdrawn Affect Description: Constricted Patient Cognition Impaired: Yes Ability to Follow Directions: Good Speech Pattern: Clear Hallucinations: None Delusions: Ideas of Reference Thought Process: Distracted and Slowed Thinking Thought Content: positive for [place] and positive for Poverty of Content Judgement: Fair Diagnostics Vital Signs (24Hr): Vital Signs - 24 hr 02/13/24 20:00 02/14/24 08:00 02/14/24 08:29 Temperature 97.6 F 97.7 F Pulse Rate 75 72 72 Respiratory Rate 18 18 Blood Pressure 127/67 139/69 139/69 Pulse Oximetry 98 99 Oxygen Delivery Method Room Air Room Air BMI result Body Mass Index 19.8 Labs Labs: Laboratory Results - last 48 hr 02/12/24 02/13/24 02/13/24 19:58 06:20 19:41 POC Glucose 92 109 132 H 02/14/24 06:04 POC Glucose 99 Medications Medications Current Medications Al Hydroxide/Mg Hydroxide (Magnesium Hydrox/Alum Hydrox 30 Ml Oral.Susp) 30 ml PO Q6H PRN PRN Reason: Heartburn/Nausea Amoxicillin/Clavulanate Potassium (Amoxicillin/Potassium Clav 875 Mg Tablet) 875 mg PO Q12H [facility] Last Admin: 02/14/24 08:29 Dose: 875 mg Apixaban (Apixaban 5 Mg Tablet) 5 mg PO BID [facility] Last Admin: 02/14/24 08:29 Dose: 5 mg Aspirin (Aspirin Enteric Coated 81 Mg Tablet.) 81 mg PO DAILY [facility] Last Admin: 02/14/24 08:29 Dose: 81 mg Atorvastatin Calcium (Atorvastatin Calcium 40 Mg Tablet) 40 mg PO DAILY [facility] Last Admin: 02/14/24 08:29 Dose: 40 mg Carvedilol (Carvedilol 12.5 Mg Tablet) 12.5 mg PO DAILY [facility]; Protocol Last Admin: 02/14/24 08:29 Dose: 12.5 mg Docusate Sodium (Docusate Sodium 100 Mg Capsule) 100 mg PO BID PRN PRN Reason: Constipation Lorazepam (Lorazepam 0.5 Mg Tablet) 0.5 mg PO Q8H PRN PRN Reason: Anxiety Melatonin (Melatonin 3 Mg Tablet) 3 mg PO BEDTIME [facility] Last Admin: 02/13/24 20:17 Dose: 3 mg Melatonin (Melatonin 3 Mg Tablet) 9 mg PO BEDTIME PRN PRN Reason: Insomnia Nitroglycerin (Nitroglycerin 0.4 Mg Tab.Subl) 0.4 mg SUBLINGUAL Q5MX3 PRN PRN Reason: Angina Risperidone (Risperidone 2 Mg Tablet) 2 mg PO BEDTIME [facility] Last Admin: 02/13/24 20:18 Dose: 2 mg Senna (Sennosides 8.6 Mg Tablet) 8.6 mg PO BID PRN PRN Reason: Constipation Sertraline HCl (Sertraline Hcl 25 Mg Tablet) 25 mg PO DAILY [facility] Last Admin: 02/14/24 08:29 Dose: 25 mg Trazodone HCl (Trazodone Hcl 25 Mg Halftab) 25 mg PO BEDTIME MRX1 PRN PRN Reason: Insomnia Allergies Allergies Allergy/AdvReac Type Severity Reaction Status Date / Time No Known Allergies Allergy Verified 02/09/24 02:40 Assessment & Plan Assessment & Plan (1) Medical clearance for psychiatric admission: Status: Acute Code(s): Z00.8 - Encounter for other general examination Plan Pt is a 79-year-old male with a complicated PMH significant for?CAD s/p CABG, 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 Patient apparently had been complaining of auditory hallucinations and paranoia, thinking that he was being recorded. Medical consult for admission H&P. ?Patient has no acute medical complaints at this time. Mood disorder Plan as per Psychiatry Chronic aortic graft infection Patient not a candidate for surgical intervention On lifelong suppression with antibiotics Continue Augmentin CAD/HLD Continue aspirin, statin Anticoagulation Unclear why pt is on Eliquis from chart and pt review Continue Eliquis Plan 1. Gather collateral information. 2. Continue with the titration of Risperdal increased up to 1 mg p.o. b.i.d. on February 09. We change to Risperdal 2 mg p.o. q.h.s. since he was over-sedated in the morning. 3. Continue with medical treatment. 4. Family meeting for disposition on February 13. Reason for continued inpatient stay Substantial Risk for: inability to function, rapid decompensation and med/psych decompensation Time Spent With Patient Time: Total time managing care of this patient today __20__ minutes.
--- NOTE | 2024-02-14 13:49 | MHC.CLN ---
NUTRITION BMI=19.8, BUT PATIENT IS 83% IBW. DIET=REGULAR. INTAKE AT MEALS USUALLY VERY GOOD. NO ADDITIONAL NUTRITION INTERVENTIONS AT THIS TIME.
[2024-02-14 19:49] LABS: Glucose, Whole Blood 100 mg/dL (60-115)
[2024-02-14 20:00] VITALS: BP 132/70; PULSE 78; RESP 16; TEMP 36.4; O2SAT 97
[2024-02-14] MEDS: Melatonin 3 MG TABLET PO (20:11)
[2024-02-14] MEDS: risperiDONE 2 MG TABLET PO (20:12)
[2024-02-15 05:42] LABS: Glucose, Whole Blood 98 mg/dL (60-115)
[2024-02-15 07:00] VITALS: BMI 21.9
[2024-02-15 08:00] VITALS: BP 128/62; PULSE 77; RESP 18; TEMP 36.3; O2SAT 98
--- NOTE | 2024-02-15 08:13 | P.PNPSI_ITS ---
Subjective Subjective Date of Service: 02/15/24 Reason For Visit: Unspecified Schizophrenia Spectrum and other Psych Subjective Notes: Conditional Voluntary Interim History: The nursing staff reported the patient had been compliant with treatment, he had been more visible in the unit. On interview the patient denies hallucinations or paranoia. Looks pleasantly confused and easily redirectable. We are going to have a family meeting today in the afternoon with Salvador, the son of his partner who is the primary caregiver in the community. Mental Status Exam Mental Status Exam Patient Appearance: Appropriate Patient Orientation: Person and Situation Level of Consciousness: Awake and Appropriate Patient Behavior: Guarded and Passive Mood Description: Withdrawn Affect Description: Constricted Patient Cognition Impaired: Yes Ability to Follow Directions: Good Speech Pattern: Clear Hallucinations: None Delusions: Ideas of Reference Thought Process: Distracted and Slowed Thinking Thought Content: positive for [place], positive for Poverty of Content and positive for Thought Blocking Judgement: Fair Diagnostics Vital Signs (24Hr): Vital Signs - 24 hr 02/14/24 08:29 02/14/24 20:00 Temperature 97.6 F Pulse Rate 72 78 Respiratory Rate 16 Blood Pressure 139/69 132/70 Pulse Oximetry 97 Oxygen Delivery Method Room Air BMI result Body Mass Index 19.8 Labs Labs: Laboratory Results - last 48 hr 02/13/24 02/14/24 02/14/24 19:41 06:04 19:44 POC Glucose 132 H 99 100 02/15/24 05:28 POC Glucose 98 Medications Medications Current Medications Al Hydroxide/Mg Hydroxide (Magnesium Hydrox/Alum Hydrox 30 Ml Oral.Susp) 30 ml PO Q6H PRN PRN Reason: Heartburn/Nausea Amoxicillin/Clavulanate Potassium (Amoxicillin/Potassium Clav 875 Mg Tablet) 875 mg PO Q12H [facility] Last Admin: 02/14/24 20:11 Dose: 875 mg Apixaban (Apixaban 5 Mg Tablet) 5 mg PO BID [facility] Last Admin: 02/14/24 20:12 Dose: 5 mg Aspirin (Aspirin Enteric Coated 81 Mg Tablet.) 81 mg PO DAILY [facility] Last Admin: 02/14/24 08:29 Dose: 81 mg Atorvastatin Calcium (Atorvastatin Calcium 40 Mg Tablet) 40 mg PO DAILY [facility] Last Admin: 02/14/24 08:29 Dose: 40 mg Carvedilol (Carvedilol 12.5 Mg Tablet) 12.5 mg PO DAILY [facility]; Protocol Last Admin: 02/14/24 08:29 Dose: 12.5 mg Docusate Sodium (Docusate Sodium 100 Mg Capsule) 100 mg PO BID PRN PRN Reason: Constipation Lorazepam (Lorazepam 0.5 Mg Tablet) 0.5 mg PO Q8H PRN PRN Reason: Anxiety Melatonin (Melatonin 3 Mg Tablet) 3 mg PO BEDTIME [facility] Last Admin: 02/14/24 20:11 Dose: 3 mg Melatonin (Melatonin 3 Mg Tablet) 9 mg PO BEDTIME PRN PRN Reason: Insomnia Nitroglycerin (Nitroglycerin 0.4 Mg Tab.Subl) 0.4 mg SUBLINGUAL Q5MX3 PRN PRN Reason: Angina Risperidone (Risperidone 2 Mg Tablet) 2 mg PO BEDTIME [facility] Last Admin: 02/14/24 20:12 Dose: 2 mg Senna (Sennosides 8.6 Mg Tablet) 8.6 mg PO BID PRN PRN Reason: Constipation Sertraline HCl (Sertraline Hcl 25 Mg Tablet) 25 mg PO DAILY [facility] Last Admin: 02/14/24 08:29 Dose: 25 mg Trazodone HCl (Trazodone Hcl 25 Mg Halftab) 25 mg PO BEDTIME MRX1 PRN PRN Reason: Insomnia Allergies Allergies Allergy/AdvReac Type Severity Reaction Status Date / Time No Known Allergies Allergy Verified 02/09/24 02:40 Assessment & Plan Assessment & Plan (1) Medical clearance for psychiatric admission: Status: Acute Code(s): Z00.8 - Encounter for other general examination (2) Dementia: Status: Acute Code(s): F03.90 - Unspecified dementia, unspecified severity, without behavioral disturbance, psychotic disturbance, mood disturbance, and anxiety Plan Pt is a 79-year-old male with a complicated PMH significant for?CAD s/p CABG, 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 Patient apparently had been complaining of auditory hallucinations and paranoia, thinking that he was being recorded. Medical consult for admission H&P. ?Patient has no acute medical complaints at this time. Mood disorder Plan as per Psychiatry Chronic aortic graft infection Patient not a candidate for surgical intervention On lifelong suppression with antibiotics Continue Augmentin CAD/HLD Continue aspirin, statin Anticoagulation Unclear why pt is on Eliquis from chart and pt review Continue Eliquis DEMENTIA VASCULAR TYPE Plan 1. Gather collateral information. 2. Continue with the titration of Risperdal increased up to 1 mg p.o. b.i.d. on February 09. We change to Risperdal 2 mg p.o. q.h.s. since he was over-sedated in the morning. 3. Continue with medical treatment. 4. Family meeting for disposition on February 14. Reason for continued inpatient stay Substantial Risk for: inability to function, rapid decompensation and med/psych decompensation Time Spent With Patient Time: Total time managing care of this patient today __20__ minutes.
[2024-02-15] MEDS: Apixaban 5 MG TABLET PO ×2 (08:52→20:02)
[2024-02-15] MEDS: Amoxicillin/Potassium Clav 875 MG TABLET PO ×2 (08:52→20:02)
[2024-02-15 08:53] VITALS: BP 128/62; PULSE 77
[2024-02-15] MEDS: Aspirin Enteric Coated 81 MG TABLET.DR PO (08:53)
[2024-02-15] MEDS: Atorvastatin Calcium 40 MG TABLET PO (08:53)
[2024-02-15] MEDS: Sertraline HCL 25 MG TABLET PO (08:53)
[2024-02-15] MEDS: carvediloL 12.5 MG TABLET PO (08:53)
[2024-02-15 19:58] LABS: Glucose, Whole Blood 159 mg/dL (60-115)
[2024-02-15 20:00] VITALS: BP 131/62; PULSE 82; RESP 17; TEMP 36.2; O2SAT 97
[2024-02-15] MEDS: risperiDONE 2 MG TABLET PO (20:03)
[2024-02-15] MEDS: Melatonin 3 MG TABLET PO (20:03)
[2024-02-16 06:38] LABS: Glucose, Whole Blood 87 mg/dL (60-115)
[2024-02-16 07:54] VITALS: BP 99/54; PULSE 75; RESP 16; TEMP 36.3; O2SAT 97
[2024-02-16] MEDS: Sertraline HCL 25 MG TABLET PO (09:36)
[2024-02-16] MEDS: Apixaban 5 MG TABLET PO ×2 (09:36→20:30)
[2024-02-16] MEDS: Atorvastatin Calcium 40 MG TABLET PO (09:37)
[2024-02-16] MEDS: Aspirin Enteric Coated 81 MG TABLET.DR PO (09:37)
[2024-02-16] MEDS: Amoxicillin/Potassium Clav 875 MG TABLET PO ×2 (09:37→20:30)
[2024-02-16 09:39] VITALS: BP 99/54; PULSE 75
--- NOTE | 2024-02-16 09:40 | PC.NURSE ---
BP 99/54 and Sabino reported mild dizziness. Notified Nellie Mistry CLINICAL INFORMATICS SPECIALIST notified and instructed to hold morning Coreg. Encouraged Sabino to take in some oral fluids and education provided. Water placed at bedside.
--- NOTE | 2024-02-16 10:44 | P.PNPSI_ITS ---
Subjective Subjective Date of Service: 02/16/24 Reason For Visit: Unspecified Schizophrenia Spectrum and other Psych Subjective Notes: Conditional Voluntary Interim History: Pt slept all night. He is taking medications as prescribed. He reports doing well. He reports feeling better than when came in but unable to elaborate. He denies SI/HI. He is eating well. no overt delusional or psychosis noted. Review of Systems Review of Systems Patient has no acute medical complaints at this time. Yes all other systems are reviewed and are negative Mental Status Exam Mental Status Exam Patient Appearance: Appropriate Patient Orientation: Person and Situation Level of Consciousness: Awake and Appropriate Patient Behavior: Guarded and Passive Mood Description: Withdrawn Affect Description: Constricted Patient Cognition Impaired: Yes Ability to Follow Directions: Good Speech Pattern: Clear Diagnostics Vital Signs (24Hr): Vital Signs - 24 hr 02/15/24 20:00 02/16/24 09:39 Temperature 97.2 F Pulse Rate 82 75 Respiratory Rate 17 Blood Pressure 131/62 99/54 L Pulse Oximetry 97 Oxygen Delivery Method Room Air BMI result Body Mass Index 21.9 Labs Labs: Laboratory Results - last 48 hr 02/14/24 02/15/24 02/15/24 19:44 05:28 19:54 POC Glucose 100 98 159 H 02/16/24 05:44 POC Glucose 87 Medications Medications Current Medications Al Hydroxide/Mg Hydroxide (Magnesium Hydrox/Alum Hydrox 30 Ml Oral.Susp) 30 ml PO Q6H PRN PRN Reason: Heartburn/Nausea Amoxicillin/Clavulanate Potassium (Amoxicillin/Potassium Clav 875 Mg Tablet) 875 mg PO Q12H [facility] Last Admin: 02/16/24 09:37 Dose: 875 mg Apixaban (Apixaban 5 Mg Tablet) 5 mg PO BID [facility] Last Admin: 02/16/24 09:36 Dose: 5 mg Aspirin (Aspirin Enteric Coated 81 Mg Tablet.Dr) 81 mg PO DAILY [facility] Last Admin: 02/16/24 09:37 Dose: 81 mg Atorvastatin Calcium (Atorvastatin Calcium 40 Mg Tablet) 40 mg PO DAILY [facility] Last Admin: 02/16/24 09:37 Dose: 40 mg Carvedilol (Carvedilol 12.5 Mg Tablet) 12.5 mg PO DAILY [facility]; Protocol Last Admin: 02/16/24 09:39 Dose: Not Given Docusate Sodium (Docusate Sodium 100 Mg Capsule) 100 mg PO BID PRN PRN Reason: Constipation Lorazepam (Lorazepam 0.5 Mg Tablet) 0.5 mg PO Q8H PRN PRN Reason: Anxiety Melatonin (Melatonin 3 Mg Tablet) 3 mg PO BEDTIME [facility] Last Admin: 02/15/24 20:03 Dose: 3 mg Melatonin (Melatonin 3 Mg Tablet) 9 mg PO BEDTIME PRN PRN Reason: Insomnia Nitroglycerin (Nitroglycerin 0.4 Mg Tab.Subl) 0.4 mg SUBLINGUAL Q5MX3 PRN PRN Reason: Angina Risperidone (Risperidone 2 Mg Tablet) 2 mg PO BEDTIME [facility] Last Admin: 02/15/24 20:03 Dose: 2 mg Senna (Sennosides 8.6 Mg Tablet) 8.6 mg PO BID PRN PRN Reason: Constipation Sertraline HCl (Sertraline Hcl 25 Mg Tablet) 25 mg PO DAILY [facility] Last Admin: 02/16/24 09:36 Dose: 25 mg Trazodone HCl (Trazodone Hcl 25 Mg Halftab) 25 mg PO BEDTIME MRX1 PRN PRN Reason: Insomnia Allergies Allergies Allergy/AdvReac Type Severity Reaction Status Date / Time No Known Allergies Allergy Verified 02/09/24 02:40 Assessment & Plan Assessment & Plan (1) Dementia: Status: Acute Code(s): F03.90 - Unspecified dementia, unspecified severity, without behavioral disturbance, psychotic disturbance, mood disturbance, and anxiety Plan Pt is a 79-year-old male with a complicated PMH significant for?CAD s/p CABG, 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 Patient apparently had been complaining of auditory hallucinations and paranoia, thinking that he was being recorded. Medical consult for admission H&P. ?Patient has no acute medical complaints at this time. Mood disorder Plan as per Psychiatry Chronic aortic graft infection Patient not a candidate for surgical intervention On lifelong suppression with antibiotics Continue Augmentin CAD/HLD Continue aspirin, statin Anticoagulation Unclear why pt is on Eliquis from chart and pt review Continue Eliquis DEMENTIA VASCULAR TYPE Plan 1. Gather collateral information. 2. Continue with the titration of Risperdal increased up to 1 mg p.o. b.i.d. on February 09. We change to Risperdal 2 mg p.o. q.h.s. since he was over-sedated in the morning. 3. Continue with medical treatment. 4. Family meeting for disposition on February 14. Reason for continued inpatient stay Substantial Risk for: inability to function Time Spent With Patient Time: Total time managing care of this patient today ____ minutes.
[2024-02-16 11:53] VITALS: BP 130/66; PULSE 77
[2024-02-16 11:58] VITALS: BP 138/71; PULSE 68
[2024-02-16 12:03] VITALS: BP 137/76; PULSE 72
--- NOTE | 2024-02-16 12:08 | PC.NURSE ---
Orthos done per Nellie Mistry NP's request, orthostasis not noted when VS taken. See VS section for readings.
[2024-02-16 20:00] VITALS: BP 137/82; PULSE 98; RESP 16; TEMP 36.5; O2SAT 96
[2024-02-16] MEDS: risperiDONE 2 MG TABLET PO (20:30)
[2024-02-16] MEDS: Melatonin 3 MG TABLET PO (20:30)
[2024-02-16 21:58] LABS: Glucose, Whole Blood 184 mg/dL (60-115)
[2024-02-17 05:54] LABS: Glucose, Whole Blood 128 mg/dL (60-115)
[2024-02-17 08:00] VITALS: BP 101/69; PULSE 92; RESP 18; TEMP 35.9; O2SAT 97
[2024-02-17] MEDS: Amoxicillin/Potassium Clav 875 MG TABLET PO ×2 (09:27→20:07)
[2024-02-17] MEDS: Aspirin Enteric Coated 81 MG TABLET.DR PO (09:27)
[2024-02-17 09:28] VITALS: BP 101/69; PULSE 92
[2024-02-17] MEDS: Sertraline HCL 25 MG TABLET PO (09:28)
[2024-02-17] MEDS: carvediloL 12.5 MG TABLET PO (09:28)
[2024-02-17] MEDS: Apixaban 5 MG TABLET PO ×2 (09:28→20:08)
[2024-02-17] MEDS: Atorvastatin Calcium 40 MG TABLET PO (09:28)
--- NOTE | 2024-02-17 14:35 | HO.PSYCHPN ---
Subjective Subjective Date of Service: 02/17/24 Reason For Visit: Unspecified Schizophrenia Spectrum and other Psych Subjective Notes: Conditional Voluntary Interim History: Pt slept all night. He is taking medications as prescribed. Patient comes out for meals passive somewhat apathetic. Medication Compliance: Yes Mental Status Exam Mental Status Exam Patient Appearance: Appropriate Patient Orientation: Person and Situation Level of Consciousness: Awake and Appropriate Patient Behavior: Guarded and Passive Mood Description: Withdrawn Affect Description: Constricted Patient Cognition Impaired: Yes Ability to Follow Directions: Good Speech Pattern: Clear Diagnostics Vital Signs (24Hr): Vital Signs - 24 hr 02/16/24 20:00 02/17/24 08:00 02/17/24 09:28 Temperature 97.7 F 96.7 F L Pulse Rate 98 92 92 Respiratory Rate 16 18 Blood Pressure 137/82 101/69 101/69 Pulse Oximetry 96 97 Oxygen Delivery Method Room Air Room Air BMI result Body Mass Index 21.9 Labs Labs: Laboratory Results - last 48 hr 02/15/24 02/16/24 02/16/24 19:54 05:44 21:54 POC Glucose 159 H 87 184 H 02/17/24 05:49 POC Glucose 128 H Medications Medications Current Medications Al Hydroxide/Mg Hydroxide (Magnesium Hydrox/Alum Hydrox 30 Ml Oral.Susp) 30 ml PO Q6H PRN PRN Reason: Heartburn/Nausea Amoxicillin/Clavulanate Potassium (Amoxicillin/Potassium Clav 875 Mg Tablet) 875 mg PO Q12H [facility] Last Admin: 02/17/24 09:27 Dose: 875 mg Apixaban (Apixaban 5 Mg Tablet) 5 mg PO BID [facility] Last Admin: 02/17/24 09:28 Dose: 5 mg Aspirin (Aspirin Enteric Coated 81 Mg Tablet.Dr) 81 mg PO DAILY [facility] Last Admin: 02/17/24 09:27 Dose: 81 mg Atorvastatin Calcium (Atorvastatin Calcium 40 Mg Tablet) 40 mg PO DAILY [facility] Last Admin: 02/17/24 09:28 Dose: 40 mg Carvedilol (Carvedilol 12.5 Mg Tablet) 12.5 mg PO DAILY [facility]; Protocol Last Admin: 02/17/24 09:28 Dose: 12.5 mg Docusate Sodium (Docusate Sodium 100 Mg Capsule) 100 mg PO BID PRN PRN Reason: Constipation Lorazepam (Lorazepam 0.5 Mg Tablet) 0.5 mg PO Q8H PRN PRN Reason: Anxiety Melatonin (Melatonin 3 Mg Tablet) 3 mg PO BEDTIME [facility] Last Admin: 02/16/24 20:30 Dose: 3 mg Melatonin (Melatonin 3 Mg Tablet) 9 mg PO BEDTIME PRN PRN Reason: Insomnia Nitroglycerin (Nitroglycerin 0.4 Mg Tab.Subl) 0.4 mg SUBLINGUAL Q5MX3 PRN PRN Reason: Angina Risperidone (Risperidone 2 Mg Tablet) 2 mg PO BEDTIME [facility] Last Admin: 02/16/24 20:30 Dose: 2 mg Senna (Sennosides 8.6 Mg Tablet) 8.6 mg PO BID PRN PRN Reason: Constipation Sertraline HCl (Sertraline Hcl 25 Mg Tablet) 25 mg PO DAILY [facility] Last Admin: 02/17/24 09:28 Dose: 25 mg Trazodone HCl (Trazodone Hcl 25 Mg Halftab) 25 mg PO BEDTIME MRX1 PRN PRN Reason: Insomnia Allergies Allergies Allergy/AdvReac Type Severity Reaction Status Date / Time No Known Allergies Allergy Verified 02/09/24 02:40 Assessment & Plan Assessment & Plan (1) Dementia: Status: Acute Code(s): F03.90 - Unspecified dementia, unspecified severity, without behavioral disturbance, psychotic disturbance, mood disturbance, and anxiety Plan Pt is a 79-year-old male with a complicated PMH significant for?CAD s/p CABG, 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 Patient apparently had been complaining of auditory hallucinations and paranoia, thinking that he was being recorded. Medical consult for admission H&P. ?Patient has no acute medical complaints at this time. Mood disorder Plan as per Psychiatry Chronic aortic graft infection Patient not a candidate for surgical intervention On lifelong suppression with antibiotics Continue Augmentin CAD/HLD Continue aspirin, statin Anticoagulation Unclear why pt is on Eliquis from chart and pt review Continue Eliquis DEMENTIA VASCULAR TYPE Plan 1. Gather collateral information. 2. Continue with the titration of Risperdal increased up to 1 mg p.o. b.i.d. on February 09. We change to Risperdal 2 mg p.o. q.h.s. since he was over-sedated in the morning. 3. Continue with medical treatment. 4. Family meeting for disposition on February 14. 02/17/2024 Continue plan of care Reason for continued inpatient stay Substantial Risk for: inability to function and rapid decompensation Time Spent With Patient Time: Total time managing care of this patient today ____ minutes.
[2024-02-17 20:00] VITALS: BP 110/67; PULSE 83; RESP 16; TEMP 36.6; O2SAT 98
[2024-02-17] MEDS: risperiDONE 2 MG TABLET PO (20:08)
[2024-02-17] MEDS: Melatonin 3 MG TABLET PO (20:08)
[2024-02-17 20:13] LABS: Glucose, Whole Blood 122 mg/dL (60-115)
[2024-02-18 06:38] LABS: Glucose, Whole Blood 117 mg/dL (60-115)
[2024-02-18 07:55] VITALS: BP 114/67; PULSE 80; RESP 18; TEMP 36.8; O2SAT 98
[2024-02-18] MEDS: Amoxicillin/Potassium Clav 875 MG TABLET PO ×2 (08:46→20:31)
[2024-02-18] MEDS: Aspirin Enteric Coated 81 MG TABLET.DR PO (08:46)
[2024-02-18 08:47] VITALS: BP 114/67; PULSE 80
[2024-02-18] MEDS: Sertraline HCL 25 MG TABLET PO (08:47)
[2024-02-18] MEDS: Atorvastatin Calcium 40 MG TABLET PO (08:47)
[2024-02-18] MEDS: carvediloL 12.5 MG TABLET PO (08:47)
[2024-02-18] MEDS: Apixaban 5 MG TABLET PO ×2 (08:47→20:31)
[2024-02-18 19:53] VITALS: BP 98/53; PULSE 80; RESP 16; TEMP 36.6; O2SAT 98
[2024-02-18 20:12] LABS: Glucose, Whole Blood 109 mg/dL (60-115)
[2024-02-18] MEDS: Melatonin 3 MG TABLET PO (20:30)
[2024-02-18] MEDS: risperiDONE 2 MG TABLET PO (20:31)
[2024-02-19 06:16] LABS: Glucose, Whole Blood 108 mg/dL (60-115)
[2024-02-19 08:00] VITALS: BP 135/72; PULSE 77; RESP 18; TEMP 36.4; O2SAT 98
[2024-02-19 08:56] VITALS: BP 135/72; PULSE 77
[2024-02-19] MEDS: carvediloL 12.5 MG TABLET PO (08:56)
[2024-02-19] MEDS: Sertraline HCL 25 MG TABLET PO (08:56)
[2024-02-19] MEDS: Atorvastatin Calcium 40 MG TABLET PO (08:56)
[2024-02-19] MEDS: Aspirin Enteric Coated 81 MG TABLET.DR PO (08:56)
[2024-02-19] MEDS: Amoxicillin/Potassium Clav 875 MG TABLET PO ×2 (08:56→20:05)
[2024-02-19] MEDS: Apixaban 5 MG TABLET PO ×2 (08:56→20:05)
--- NOTE | 2024-02-19 15:11 | P.PNPSI_ITS ---
Subjective Subjective Date of Service: 02/12/24 Reason For Visit: Unspecified Schizophrenia Spectrum and other Psych Subjective Notes: Conditional Voluntary Interim History: The nursing staff reported the patient has been eating well, he attended groups he denies hallucinations. He slept 8 hours. The social science instructor reported that they are a plicating for assisted living facilities. On interview the patient denies paranoia or delusions no side effects with the current dose of Risperdal. Mental Status Exam Mental Status Exam Patient Appearance: Appropriate Patient Orientation: Person and Situation Level of Consciousness: Awake and Appropriate Patient Behavior: Guarded and Passive Mood Description: Withdrawn Affect Description: Constricted Patient Cognition Impaired: Yes Ability to Follow Directions: Good Speech Pattern: Clear Hallucinations: None Delusions: Not Present Thought Process: Distracted and Slowed Thinking Thought Content: positive for [place] and positive for Poverty of Content Judgement: Fair Diagnostics Vital Signs (24Hr): Vital Signs - 24 hr 02/18/24 19:53 02/19/24 08:00 02/19/24 08:56 Temperature 97.9 F 97.6 F Pulse Rate 80 77 77 Respiratory Rate 16 18 Blood Pressure 98/53 L 135/72 135/72 Pulse Oximetry 98 98 Oxygen Delivery Method Room Air Room Air BMI result Body Mass Index 21.9 Labs Labs: Laboratory Results - last 48 hr 02/17/24 02/18/24 02/18/24 20:06 06:13 19:53 POC Glucose 122 H 117 H 109 02/19/24 06:03 POC Glucose 108 Medications Medications Current Medications Al Hydroxide/Mg Hydroxide (Magnesium Hydrox/Alum Hydrox 30 Ml Oral.Susp) 30 ml PO Q6H PRN PRN Reason: Heartburn/Nausea Amoxicillin/Clavulanate Potassium (Amoxicillin/Potassium Clav 875 Mg Tablet) 875 mg PO Q12H [facility] Last Admin: 02/19/24 08:56 Dose: 875 mg Apixaban (Apixaban 5 Mg Tablet) 5 mg PO BID [facility] Last Admin: 02/19/24 08:56 Dose: 5 mg Aspirin (Aspirin Enteric Coated 81 Mg Tablet.Dr) 81 mg PO DAILY [facility] Last Admin: 02/19/24 08:56 Dose: 81 mg Atorvastatin Calcium (Atorvastatin Calcium 40 Mg Tablet) 40 mg PO DAILY [facility] Last Admin: 02/19/24 08:56 Dose: 40 mg Carvedilol (Carvedilol 12.5 Mg Tablet) 12.5 mg PO DAILY [facility]; Protocol Last Admin: 02/19/24 08:56 Dose: 12.5 mg Docusate Sodium (Docusate Sodium 100 Mg Capsule) 100 mg PO BID PRN PRN Reason: Constipation Lorazepam (Lorazepam 0.5 Mg Tablet) 0.5 mg PO Q8H PRN PRN Reason: Anxiety Melatonin (Melatonin 3 Mg Tablet) 3 mg PO BEDTIME [facility] Last Admin: 02/18/24 20:30 Dose: 3 mg Melatonin (Melatonin 3 Mg Tablet) 9 mg PO BEDTIME PRN PRN Reason: Insomnia Nitroglycerin (Nitroglycerin 0.4 Mg Tab.Subl) 0.4 mg SUBLINGUAL Q5MX3 PRN PRN Reason: Angina Risperidone (Risperidone 2 Mg Tablet) 2 mg PO BEDTIME [facility] Last Admin: 02/18/24 20:31 Dose: 2 mg Senna (Sennosides 8.6 Mg Tablet) 8.6 mg PO BID PRN PRN Reason: Constipation Sertraline HCl (Sertraline Hcl 25 Mg Tablet) 25 mg PO DAILY [facility] Last Admin: 02/19/24 08:56 Dose: 25 mg Trazodone HCl (Trazodone Hcl 25 Mg Halftab) 25 mg PO BEDTIME MRX1 PRN PRN Reason: Insomnia Allergies Allergies Allergy/AdvReac Type Severity Reaction Status Date / Time No Known Allergies Allergy Verified 02/09/24 02:40 Assessment & Plan Assessment & Plan (1) Dementia: Status: Acute Code(s): F03.90 - Unspecified dementia, unspecified severity, without behavioral disturbance, psychotic disturbance, mood disturbance, and anxiety Plan Pt is a 79-year-old male with a complicated PMH significant for?CAD s/p CABG, 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 Patient apparently had been complaining of auditory hallucinations and paranoia, thinking that he was being recorded. Medical consult for admission H&P. ?Patient has no acute medical complaints at this time. Mood disorder Plan as per Psychiatry Chronic aortic graft infection Patient not a candidate for surgical intervention On lifelong suppression with antibiotics Continue Augmentin CAD/HLD Continue aspirin, statin Anticoagulation Unclear why pt is on Eliquis from chart and pt review Continue Eliquis DEMENTIA VASCULAR TYPE Plan 1. Gather collateral information. 2. Continue with the titration of Risperdal increased up to 1 mg p.o. b.i.d. on February 09. We change to Risperdal 2 mg p.o. q.h.s. since he was over-sedated in the morning. 3. Continue with medical treatment. 4. Family meeting for disposition on February 14. 5. Discharge to assisted living facility when available. Reason for continued inpatient stay Substantial Risk for: inability to function, rapid decompensation and med/psych decompensation Time Spent With Patient Time: Total time managing care of this patient today __20__ minutes.
[2024-02-19 20:00] VITALS: BP 96/55; PULSE 88; RESP 18; O2SAT 96
[2024-02-19 20:04] LABS: Glucose, Whole Blood 161 mg/dL (60-115)
[2024-02-19] MEDS: risperiDONE 2 MG TABLET PO (20:05)
[2024-02-19] MEDS: Melatonin 3 MG TABLET PO (20:05)
[2024-02-20 06:11] LABS: Glucose, Whole Blood 110 mg/dL (60-115)
[2024-02-20 09:00] VITALS: BP 116/68; PULSE 75; RESP 18; TEMP 36.8; O2SAT 98
[2024-02-20] MEDS: Sertraline HCL 25 MG TABLET PO (09:30)
[2024-02-20 09:31] VITALS: BP 116/68; PULSE 75
[2024-02-20] MEDS: Apixaban 5 MG TABLET PO ×2 (09:31→20:32)
[2024-02-20] MEDS: Atorvastatin Calcium 40 MG TABLET PO (09:31)
[2024-02-20] MEDS: Amoxicillin/Potassium Clav 875 MG TABLET PO ×2 (09:31→20:32)
[2024-02-20] MEDS: Aspirin Enteric Coated 81 MG TABLET.DR PO (09:31)
[2024-02-20] MEDS: carvediloL 12.5 MG TABLET PO (09:31)
--- NOTE | 2024-02-20 12:51 | P.PNPSI_ITS ---
Subjective Subjective Date of Service: 02/20/24 Reason For Visit: Unspecified Schizophrenia Spectrum and other Psych Subjective Notes: Conditional Voluntary Interim History: The nursing staff reported that he has been compliant with treatment, no side effects with treatment. On interview, he denies new symptoms, no evidence of side effects. Mental Status Exam Mental Status Exam Patient Appearance: Appropriate Patient Orientation: Person and Situation Level of Consciousness: Awake Patient Behavior: Appropriate and Cooperative Mood Description: Calm Affect Description: Constricted Patient Cognition Impaired: Yes Ability to Follow Directions: Good Hallucinations: None Delusions: Not Present Thought Process: Distracted and Linear Thought Content: positive for [place] and positive for Poverty of Content Judgement: Fair Diagnostics Vital Signs (24Hr): Vital Signs - 24 hr 02/19/24 20:00 02/20/24 09:00 02/20/24 09:31 Temperature 98.2 F Pulse Rate 88 75 75 Respiratory Rate 18 18 Blood Pressure 96/55 L 116/68 116/68 Pulse Oximetry 96 98 Oxygen Delivery Method Room Air Room Air BMI result Body Mass Index 21.9 Labs Labs: Laboratory Results - last 48 hr 02/18/24 02/19/24 02/19/24 19:53 06:03 19:41 POC Glucose 109 108 161 H 02/20/24 05:58 POC Glucose 110 Medications Medications Current Medications Al Hydroxide/Mg Hydroxide (Magnesium Hydrox/Alum Hydrox 30 Ml Oral.Susp) 30 ml PO Q6H PRN PRN Reason: Heartburn/Nausea Amoxicillin/Clavulanate Potassium (Amoxicillin/Potassium Clav 875 Mg Tablet) 875 mg PO Q12H [facility] Last Admin: 02/20/24 09:31 Dose: 875 mg Apixaban (Apixaban 5 Mg Tablet) 5 mg PO BID [facility] Last Admin: 02/20/24 09:31 Dose: 5 mg Aspirin (Aspirin Enteric Coated 81 Mg Tablet.Dr) 81 mg PO DAILY [facility] Last Admin: 02/20/24 09:31 Dose: 81 mg Atorvastatin Calcium (Atorvastatin Calcium 40 Mg Tablet) 40 mg PO DAILY [facility] Last Admin: 02/20/24 09:31 Dose: 40 mg Carvedilol (Carvedilol 12.5 Mg Tablet) 12.5 mg PO DAILY [facility]; Protocol Last Admin: 02/20/24 09:31 Dose: 12.5 mg Docusate Sodium (Docusate Sodium 100 Mg Capsule) 100 mg PO BID PRN PRN Reason: Constipation Lorazepam (Lorazepam 0.5 Mg Tablet) 0.5 mg PO Q8H PRN PRN Reason: Anxiety Melatonin (Melatonin 3 Mg Tablet) 3 mg PO BEDTIME [facility] Last Admin: 02/19/24 20:05 Dose: 3 mg Melatonin (Melatonin 3 Mg Tablet) 9 mg PO BEDTIME PRN PRN Reason: Insomnia Nitroglycerin (Nitroglycerin 0.4 Mg Tab.Subl) 0.4 mg SUBLINGUAL Q5MX3 PRN PRN Reason: Angina Risperidone (Risperidone 2 Mg Tablet) 2 mg PO BEDTIME [facility] Last Admin: 02/19/24 20:05 Dose: 2 mg Senna (Sennosides 8.6 Mg Tablet) 8.6 mg PO BID PRN PRN Reason: Constipation Sertraline HCl (Sertraline Hcl 25 Mg Tablet) 25 mg PO DAILY [facility] Last Admin: 02/20/24 09:30 Dose: 25 mg Trazodone HCl (Trazodone Hcl 25 Mg Halftab) 25 mg PO BEDTIME MRX1 PRN PRN Reason: Insomnia Allergies Allergies Allergy/AdvReac Type Severity Reaction Status Date / Time No Known Allergies Allergy Verified 02/09/24 02:40 Assessment & Plan Assessment & Plan (1) Dementia: Status: Acute Code(s): F03.90 - Unspecified dementia, unspecified severity, without behavioral disturbance, psychotic disturbance, mood disturbance, and anxiety Plan Pt is a 79-year-old male with a complicated PMH significant for?CAD s/p CABG, 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 Patient apparently had been complaining of auditory hallucinations and paranoia, thinking that he was being recorded. Medical consult for admission H&P. ?Patient has no acute medical complaints at this time. Mood disorder Plan as per Psychiatry Chronic aortic graft infection Patient not a candidate for surgical intervention On lifelong suppression with antibiotics Continue Augmentin CAD/HLD Continue aspirin, statin Anticoagulation Unclear why pt is on Eliquis from chart and pt review Continue Eliquis DEMENTIA VASCULAR TYPE Plan 1. Gather collateral information. 2. Continue with the titration of Risperdal increased up to 1 mg p.o. b.i.d. on February 09. We change to Risperdal 2 mg p.o. q.h.s. since he was over-sedated in the morning. 3. Continue with medical treatment. 4. Family meeting for disposition on February 14. 5. Discharge to assisted living facility when available. Reason for continued inpatient stay Substantial Risk for: inability to function, rapid decompensation and med/psych decompensation Time Spent With Patient Time: Total time managing care of this patient today __20__ minutes.
[2024-02-20 20:00] VITALS: BP 128/70; PULSE 76; RESP 17; TEMP 36.4; O2SAT 98
[2024-02-20 20:06] LABS: Glucose, Whole Blood 148 mg/dL (60-115)
[2024-02-20] MEDS: risperiDONE 2 MG TABLET PO (20:32)
[2024-02-20] MEDS: Melatonin 3 MG TABLET PO (20:32)
[2024-02-21 06:14] LABS: Glucose, Whole Blood 137 mg/dL (60-115)
[2024-02-21 07:55] VITALS: BP 154/68; PULSE 84; RESP 18; TEMP 36.3; O2SAT 98
[2024-02-21 08:04] VITALS: BP 154/68; PULSE 84
[2024-02-21] MEDS: Amoxicillin/Potassium Clav 875 MG TABLET PO ×2 (08:04→20:13)
[2024-02-21] MEDS: Atorvastatin Calcium 40 MG TABLET PO (08:04)
[2024-02-21] MEDS: carvediloL 12.5 MG TABLET PO (08:04)
[2024-02-21] MEDS: Apixaban 5 MG TABLET PO ×2 (08:04→20:13)
[2024-02-21] MEDS: Sertraline HCL 25 MG TABLET PO (08:04)
[2024-02-21] MEDS: Aspirin Enteric Coated 81 MG TABLET.DR PO (08:04)
--- NOTE | 2024-02-21 11:14 | MHC.CLN ---
F/U WEIGHT ON 02/15/24=67.3 KG. BMI=21.9 AND IS 93% OF IBW. DIET=REGULAR. INTAKE AT MEALS USUALLY VERY GOOD. NO ADDITIONAL NUTRITION FOLLOW UP AT THIS TIME.
--- NOTE | 2024-02-21 13:57 | P.PNPSI_ITS ---
Subjective Subjective Date of Service: 02/21/24 Reason For Visit: Unspecified Schizophrenia Spectrum and other Psych Subjective Notes: Conditional Voluntary Interim History: The nursing staff reported the patient had been compliant with treatment, he spent most of the time on groups. Pleasant cooperative. The high school social studies teacher reported that he is going to assisted living facility next week he was already. On interview the patient denies new symptoms no side effects with current medications. Mental Status Exam Mental Status Exam Patient Appearance: Appropriate Patient Orientation: Person and Situation Level of Consciousness: Awake and Appropriate Patient Behavior: Guarded and Passive Mood Description: Withdrawn Affect Description: Constricted Patient Cognition Impaired: Yes Ability to Follow Directions: Good Speech Pattern: Clear Hallucinations: None Delusions: Not Present Thought Process: Distracted and Slowed Thinking Thought Content: positive for [place] and positive for Poverty of Content Judgement: Fair Diagnostics Vital Signs (24Hr): Vital Signs - 24 hr 02/20/24 20:00 02/21/24 07:55 02/21/24 08:04 Temperature 97.5 F 97.4 F Pulse Rate 76 84 84 Respiratory Rate 17 18 Blood Pressure 128/70 154/68 H 154/68 H Pulse Oximetry 98 98 Oxygen Delivery Method Room Air Room Air BMI result Body Mass Index 21.9 Labs Labs: Laboratory Results - last 48 hr 02/19/24 02/20/24 02/20/24 19:41 05:58 19:51 POC Glucose 161 H 110 148 H 02/21/24 06:05 POC Glucose 137 H Medications Medications Current Medications Al Hydroxide/Mg Hydroxide (Magnesium Hydrox/Alum Hydrox 30 Ml Oral.Susp) 30 ml PO Q6H PRN PRN Reason: Heartburn/Nausea Amoxicillin/Clavulanate Potassium (Amoxicillin/Potassium Clav 875 Mg Tablet) 875 mg PO Q12H [facility] Last Admin: 02/21/24 08:04 Dose: 875 mg Apixaban (Apixaban 5 Mg Tablet) 5 mg PO BID [facility] Last Admin: 02/21/24 08:04 Dose: 5 mg Aspirin (Aspirin Enteric Coated 81 Mg Tablet.) 81 mg PO DAILY [facility] Last Admin: 02/21/24 08:04 Dose: 81 mg Atorvastatin Calcium (Atorvastatin Calcium 40 Mg Tablet) 40 mg PO DAILY [facility] Last Admin: 02/21/24 08:04 Dose: 40 mg Carvedilol (Carvedilol 12.5 Mg Tablet) 12.5 mg PO DAILY [facility]; Protocol Last Admin: 02/21/24 08:04 Dose: 12.5 mg Docusate Sodium (Docusate Sodium 100 Mg Capsule) 100 mg PO BID PRN PRN Reason: Constipation Lorazepam (Lorazepam 0.5 Mg Tablet) 0.5 mg PO Q8H PRN PRN Reason: Anxiety Melatonin (Melatonin 3 Mg Tablet) 3 mg PO BEDTIME [facility] Last Admin: 02/20/24 20:32 Dose: 3 mg Melatonin (Melatonin 3 Mg Tablet) 9 mg PO BEDTIME PRN PRN Reason: Insomnia Nitroglycerin (Nitroglycerin 0.4 Mg Tab.Subl) 0.4 mg SUBLINGUAL Q5MX3 PRN PRN Reason: Angina Risperidone (Risperidone 2 Mg Tablet) 2 mg PO BEDTIME [facility] Last Admin: 02/20/24 20:32 Dose: 2 mg Senna (Sennosides 8.6 Mg Tablet) 8.6 mg PO BID PRN PRN Reason: Constipation Sertraline HCl (Sertraline Hcl 25 Mg Tablet) 25 mg PO DAILY [facility] Last Admin: 02/21/24 08:04 Dose: 25 mg Trazodone HCl (Trazodone Hcl 25 Mg Halftab) 25 mg PO BEDTIME MRX1 PRN PRN Reason: Insomnia Allergies Allergies Allergy/AdvReac Type Severity Reaction Status Date / Time No Known Allergies Allergy Verified 02/09/24 02:40 Assessment & Plan Assessment & Plan (1) Dementia: Status: Acute Code(s): F03.90 - Unspecified dementia, unspecified severity, without behavioral disturbance, psychotic disturbance, mood disturbance, and anxiety Plan Pt is a 79-year-old male with a complicated PMH significant for?CAD s/p CABG, 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 Patient apparently had been complaining of auditory hallucinations and paranoia, thinking that he was being recorded. Medical consult for admission H&P. ?Patient has no acute medical complaints at this time. Mood disorder Plan as per Psychiatry Chronic aortic graft infection Patient not a candidate for surgical intervention On lifelong suppression with antibiotics Continue Augmentin CAD/HLD Continue aspirin, statin Anticoagulation Unclear why pt is on Eliquis from chart and pt review Continue Eliquis DEMENTIA VASCULAR TYPE Plan 1. Gather collateral information. 2. Continue with the titration of Risperdal increased up to 1 mg p.o. b.i.d. on February 09. We change to Risperdal 2 mg p.o. q.h.s. since he was over-sedated in the morning. 3. Continue with medical treatment. 4. Family meeting for disposition on February 14. 5. Discharge to assisted living facility when available. Reason for continued inpatient stay Substantial Risk for: inability to function, rapid decompensation and med/psych decompensation Time Spent With Patient Time: Total time managing care of this patient today __20__ minutes.
[2024-02-21 20:00] VITALS: BP 108/57; PULSE 89; RESP 18; TEMP 36.5; O2SAT 99
[2024-02-21] MEDS: risperiDONE 2 MG TABLET PO (20:13)
[2024-02-21] MEDS: Melatonin 3 MG TABLET PO (20:14)
[2024-02-21 20:48] LABS: Glucose, Whole Blood 132 mg/dL (60-115)
[2024-02-22 06:42] LABS: Glucose, Whole Blood 112 mg/dL (60-115)
[2024-02-22 07:00] VITALS: BMI 23.2
[2024-02-22 08:26] VITALS: BP 117/63; PULSE 81; RESP 16; TEMP 36.3; O2SAT 98
[2024-02-22] MEDS: Apixaban 5 MG TABLET PO ×2 (08:27→19:45)
[2024-02-22] MEDS: Sertraline HCL 25 MG TABLET PO (08:27)
[2024-02-22] MEDS: Amoxicillin/Potassium Clav 875 MG TABLET PO ×2 (08:27→19:44)
[2024-02-22 08:28] VITALS: BP 117/63; PULSE 81
[2024-02-22] MEDS: Aspirin Enteric Coated 81 MG TABLET.DR PO (08:28)
[2024-02-22] MEDS: carvediloL 12.5 MG TABLET PO (08:28)
[2024-02-22] MEDS: Atorvastatin Calcium 40 MG TABLET PO (08:28)
--- NOTE | 2024-02-22 13:23 | P.PNPSI_ITS ---
Subjective Subjective Date of Service: 02/22/24 Reason For Visit: Unspecified Schizophrenia Spectrum and other Psych Subjective Notes: Conditional Voluntary Interim History: The nursing staff reported the patient had been calm, cooperative, he slept 8 hours. The social media sr strategy manager reported that he can be discharged soon. On interview the patient denies new symptoms pleasant, cooperative no evidence of psychosis with Risperdal 2 mg p.o. q.h.s. Mental Status Exam Mental Status Exam Patient Appearance: Appropriate Patient Orientation: Person and Situation Level of Consciousness: Awake and Appropriate Patient Behavior: Guarded and Passive Mood Description: Withdrawn Affect Description: Constricted Patient Cognition Impaired: Yes Ability to Follow Directions: Good Speech Pattern: Clear Hallucinations: None Delusions: Ideas of Reference Thought Process: Distracted and Slowed Thinking Thought Content: positive for [place] and positive for Poverty of Content Judgement: Fair Diagnostics Vital Signs (24Hr): Vital Signs - 24 hr 02/21/24 20:00 02/22/24 08:26 02/22/24 08:28 Temperature 97.7 F 97.4 F Pulse Rate 89 81 81 Respiratory Rate 18 16 Blood Pressure 108/57 L 117/63 117/63 Pulse Oximetry 99 98 Oxygen Delivery Method Room Air Room Air BMI result Body Mass Index 23.2 Labs Labs: Laboratory Results - last 48 hr 02/20/24 02/21/24 02/21/24 19:51 06:05 20:12 POC Glucose 148 H 137 H 132 H 02/22/24 06:22 POC Glucose 112 Medications Medications Current Medications Al Hydroxide/Mg Hydroxide (Magnesium Hydrox/Alum Hydrox 30 Ml Oral.Susp) 30 ml PO Q6H PRN PRN Reason: Heartburn/Nausea Amoxicillin/Clavulanate Potassium (Amoxicillin/Potassium Clav 875 Mg Tablet) 875 mg PO Q12H [facility] Last Admin: 02/22/24 08:27 Dose: 875 mg Apixaban (Apixaban 5 Mg Tablet) 5 mg PO BID [facility] Last Admin: 02/22/24 08:27 Dose: 5 mg Aspirin (Aspirin Enteric Coated 81 Mg Tablet.) 81 mg PO DAILY [facility] Last Admin: 02/22/24 08:28 Dose: 81 mg Atorvastatin Calcium (Atorvastatin Calcium 40 Mg Tablet) 40 mg PO DAILY [facility] Last Admin: 02/22/24 08:28 Dose: 40 mg Carvedilol (Carvedilol 12.5 Mg Tablet) 12.5 mg PO DAILY [facility]; Protocol Last Admin: 02/22/24 08:28 Dose: 12.5 mg Docusate Sodium (Docusate Sodium 100 Mg Capsule) 100 mg PO BID PRN PRN Reason: Constipation Lorazepam (Lorazepam 0.5 Mg Tablet) 0.5 mg PO Q8H PRN PRN Reason: Anxiety Melatonin (Melatonin 3 Mg Tablet) 3 mg PO BEDTIME [facility] Last Admin: 02/21/24 20:14 Dose: 3 mg Melatonin (Melatonin 3 Mg Tablet) 9 mg PO BEDTIME PRN PRN Reason: Insomnia Nitroglycerin (Nitroglycerin 0.4 Mg Tab.Subl) 0.4 mg SUBLINGUAL Q5MX3 PRN PRN Reason: Angina Risperidone (Risperidone 2 Mg Tablet) 2 mg PO BEDTIME [facility] Last Admin: 02/21/24 20:13 Dose: 2 mg Senna (Sennosides 8.6 Mg Tablet) 8.6 mg PO BID PRN PRN Reason: Constipation Sertraline HCl (Sertraline Hcl 25 Mg Tablet) 25 mg PO DAILY [facility] Last Admin: 02/22/24 08:27 Dose: 25 mg Trazodone HCl (Trazodone Hcl 25 Mg Halftab) 25 mg PO BEDTIME MRX1 PRN PRN Reason: Insomnia Allergies Allergies Allergy/AdvReac Type Severity Reaction Status Date / Time No Known Allergies Allergy Verified 02/09/24 02:40 Assessment & Plan Assessment & Plan (1) Dementia: Status: Acute Code(s): F03.90 - Unspecified dementia, unspecified severity, without behavioral disturbance, psychotic disturbance, mood disturbance, and anxiety Plan Pt is a 79-year-old male with a complicated PMH significant for?CAD s/p CABG, 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 Patient apparently had been complaining of auditory hallucinations and paranoia, thinking that he was being recorded. Medical consult for admission H&P. ?Patient has no acute medical complaints at this time. Mood disorder Plan as per Psychiatry Chronic aortic graft infection Patient not a candidate for surgical intervention On lifelong suppression with antibiotics Continue Augmentin CAD/HLD Continue aspirin, statin Anticoagulation Unclear why pt is on Eliquis from chart and pt review Continue Eliquis DEMENTIA VASCULAR TYPE Plan 1. Gather collateral information. 2. Continue with the titration of Risperdal increased up to 1 mg p.o. b.i.d. on February 09. We change to Risperdal 2 mg p.o. q.h.s. since he was over-sedated in the morning. 3. Continue with medical treatment. 4. Family meeting for disposition on February 14. 5. Discharge to assisted living facility when available. Reason for continued inpatient stay Substantial Risk for: inability to function, rapid decompensation and med/psych decompensation Time Spent With Patient Time: Total time managing care of this patient today __20__ minutes.
[2024-02-22] MEDS: Melatonin 3 MG TABLET PO (19:44)
[2024-02-22] MEDS: traZODone HCL 25 MG HALFTAB PO (19:44)
[2024-02-22] MEDS: risperiDONE 2 MG TABLET PO (19:45)
[2024-02-22 20:00] VITALS: BP 131/65; PULSE 79; RESP 16; TEMP 36.5; O2SAT 98
[2024-02-22 21:02] LABS: Glucose, Whole Blood 145 mg/dL (60-115)
[2024-02-23 06:31] LABS: Glucose, Whole Blood 96 mg/dL (60-115)
[2024-02-23 08:05] VITALS: BP 110/62; PULSE 84; RESP 18; TEMP 36.6; O2SAT 97
[2024-02-23] MEDS: Apixaban 5 MG TABLET PO ×2 (08:45→19:46)
[2024-02-23 08:46] VITALS: BP 117/65; PULSE 83
[2024-02-23] MEDS: carvediloL 12.5 MG TABLET PO (08:46)
[2024-02-23] MEDS: Amoxicillin/Potassium Clav 875 MG TABLET PO ×2 (08:46→19:45)
[2024-02-23] MEDS: Aspirin Enteric Coated 81 MG TABLET.DR PO (08:46)
[2024-02-23] MEDS: Sertraline HCL 25 MG TABLET PO (08:46)
[2024-02-23] MEDS: Atorvastatin Calcium 40 MG TABLET PO (08:46)
--- NOTE | 2024-02-23 13:50 | P.PNPSI_ITS ---
Subjective Subjective Date of Service: 02/23/24 Reason For Visit: Unspecified Schizophrenia Spectrum and other Psych Subjective Notes: Conditional Voluntary Interim History: The nursing staff reported the patient had been pleasant, cooperative denies anxiety or depression he was incontinent of urine and feces. On interview the patient denies new symptoms no evidence of psychosis. The social service director reported that his family now wants him to go to another assisted living facility. 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 Mental Status Exam Mental Status Exam Patient Appearance: Appropriate Patient Orientation: Person and Situation Level of Consciousness: Awake and Appropriate Patient Behavior: Guarded and Passive Mood Description: Withdrawn Affect Description: Constricted Patient Cognition Impaired: Yes Ability to Follow Directions: Good Speech Pattern: Clear Hallucinations: None Delusions: Not Present Thought Process: Distracted and Evasive Thought Content: positive for [place] and positive for Circumstantial Judgement: Fair Diagnostics Vital Signs (24Hr): Vital Signs - 24 hr 02/22/24 20:00 02/23/24 08:05 02/23/24 08:46 Temperature 97.7 F 97.9 F Pulse Rate 79 84 83 Respiratory Rate 16 18 Blood Pressure 131/65 110/62 117/65 Pulse Oximetry 98 97 Oxygen Delivery Method Room Air Room Air BMI result Body Mass Index 23.2 Labs Labs: Laboratory Results - last 48 hr 02/21/24 02/22/24 02/22/24 20:12 06:22 19:52 POC Glucose 132 H 112 145 H 02/23/24 06:25 POC Glucose 96 Medications Medications Current Medications Al Hydroxide/Mg Hydroxide (Magnesium Hydrox/Alum Hydrox 30 Ml Oral.Susp) 30 ml PO Q6H PRN PRN Reason: Heartburn/Nausea Amoxicillin/Clavulanate Potassium (Amoxicillin/Potassium Clav 875 Mg Tablet) 875 mg PO Q12H [facility] Last Admin: 02/23/24 08:46 Dose: 875 mg Apixaban (Apixaban 5 Mg Tablet) 5 mg PO BID [facility] Last Admin: 02/23/24 08:45 Dose: 5 mg Aspirin (Aspirin Enteric Coated 81 Mg Tablet.) 81 mg PO DAILY [facility] Last Admin: 02/23/24 08:46 Dose: 81 mg Atorvastatin Calcium (Atorvastatin Calcium 40 Mg Tablet) 40 mg PO DAILY [facility] Last Admin: 02/23/24 08:46 Dose: 40 mg Carvedilol (Carvedilol 12.5 Mg Tablet) 12.5 mg PO DAILY [facility]; Protocol Last Admin: 02/23/24 08:46 Dose: 12.5 mg Docusate Sodium (Docusate Sodium 100 Mg Capsule) 100 mg PO BID PRN PRN Reason: Constipation Lorazepam (Lorazepam 0.5 Mg Tablet) 0.5 mg PO Q8H PRN PRN Reason: Anxiety Melatonin (Melatonin 3 Mg Tablet) 3 mg PO BEDTIME [facility] Last Admin: 02/22/24 19:44 Dose: 3 mg Melatonin (Melatonin 3 Mg Tablet) 9 mg PO BEDTIME PRN PRN Reason: Insomnia Nitroglycerin (Nitroglycerin 0.4 Mg Tab.Subl) 0.4 mg SUBLINGUAL Q5MX3 PRN PRN Reason: Angina Risperidone (Risperidone 2 Mg Tablet) 2 mg PO BEDTIME [facility] Last Admin: 02/22/24 19:45 Dose: 2 mg Senna (Sennosides 8.6 Mg Tablet) 8.6 mg PO BID PRN PRN Reason: Constipation Sertraline HCl (Sertraline Hcl 25 Mg Tablet) 25 mg PO DAILY [facility] Last Admin: 02/23/24 08:46 Dose: 25 mg Trazodone HCl (Trazodone Hcl 25 Mg Halftab) 25 mg PO BEDTIME MRX1 PRN PRN Reason: Insomnia Last Admin: 02/22/24 19:44 Dose: 25 mg Allergies Allergies Allergy/AdvReac Type Severity Reaction Status Date / Time No Known Allergies Allergy Verified 02/09/24 02:40 Assessment & Plan Assessment & Plan (1) Dementia: Status: Acute Code(s): F03.90 - Unspecified dementia, unspecified severity, without behavioral disturbance, psychotic disturbance, mood disturbance, and anxiety Plan Pt is a 79-year-old male with a complicated PMH significant for?CAD s/p CABG, 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 Patient apparently had been complaining of auditory hallucinations and paranoia, thinking that he was being recorded. Medical consult for admission H&P. ?Patient has no acute medical complaints at this time. Mood disorder Plan as per Psychiatry Chronic aortic graft infection Patient not a candidate for surgical intervention On lifelong suppression with antibiotics Continue Augmentin CAD/HLD Continue aspirin, statin Anticoagulation Unclear why pt is on Eliquis from chart and pt review Continue Eliquis DEMENTIA VASCULAR TYPE Plan 1. Gather collateral information. 2. Continue with the titration of Risperdal increased up to 1 mg p.o. b.i.d. on February 09. We change to Risperdal 2 mg p.o. q.h.s. since he was over-sedated in the morning. 3. Continue with medical treatment. 4. Family meeting for disposition on February 14. 5. Discharge to assisted living facility when available. Reason for continued inpatient stay Substantial Risk for: inability to function, rapid decompensation and med/psych decompensation Time Spent With Patient Time: Total time managing care of this patient today __20__ minutes.
[2024-02-23] MEDS: traZODone HCL 25 MG HALFTAB PO (19:45)
[2024-02-23] MEDS: Melatonin 3 MG TABLET PO (19:45)
[2024-02-23] MEDS: risperiDONE 2 MG TABLET PO (19:46)
[2024-02-23 20:00] VITALS: BP 107/63; PULSE 70; RESP 18; TEMP 35.9; O2SAT 98
[2024-02-23 20:57] LABS: Glucose, Whole Blood 109 mg/dL (60-115)
[2024-02-24 08:15] LABS: Glucose, Whole Blood 95 mg/dL (60-115)
[2024-02-24 08:50] VITALS: BP 102/56; PULSE 85; RESP 16; TEMP 36.5; O2SAT 97
[2024-02-24 08:55] VITALS: BP 102/56; PULSE 85
[2024-02-24] MEDS: carvediloL 12.5 MG TABLET PO (08:55)
[2024-02-24] MEDS: Amoxicillin/Potassium Clav 875 MG TABLET PO ×2 (08:55→20:47)
[2024-02-24] MEDS: Aspirin Enteric Coated 81 MG TABLET.DR PO (08:55)
[2024-02-24] MEDS: Atorvastatin Calcium 40 MG TABLET PO (08:55)
[2024-02-24] MEDS: Sertraline HCL 25 MG TABLET PO (08:55)
[2024-02-24] MEDS: Apixaban 5 MG TABLET PO ×2 (08:56→20:47)
--- NOTE | 2024-02-24 18:57 | HO.PSYCHPN ---
Subjective Subjective Date of Service: 02/24/24 Reason For Visit: Unspecified Schizophrenia Spectrum and other Psych Interim History: With patient; discussed with team Patient says that he is okay and denies any AVH. Pleasant and calm on approach, sitting in the milieu interacting with others. Staff reports that since starting Risperdal has been without AH. Mental Status Exam Mental Status Exam Patient Appearance: Appropriate Patient Orientation: Person and Situation Level of Consciousness: Awake and Appropriate Patient Behavior: Cooperative, Passive and Poor Eye Contact Mood Description: Withdrawn Affect Description: Withdrawn Patient Cognition Impaired: Yes Ability to Follow Directions: Good Speech Pattern: Clear Hallucinations: None Delusions: Not Present Thought Process: Distracted and Evasive Thought Content: positive for [place] and positive for Circumstantial Judgement: Fair Diagnostics Vital Signs (24Hr): Vital Signs - 24 hr 02/23/24 20:00 02/24/24 08:50 02/24/24 08:55 Temperature 96.7 F L 97.7 F Pulse Rate 70 85 85 Respiratory Rate 18 16 Blood Pressure 107/63 102/56 L 102/56 L Pulse Oximetry 98 97 Oxygen Delivery Method Room Air Room Air BMI result Body Mass Index 23.2 Labs Labs: Laboratory Results - last 48 hr 02/22/24 02/23/24 02/23/24 19:52 06:25 19:44 POC Glucose 145 H 96 109 02/24/24 06:22 POC Glucose 95 Medications Medications Current Medications Al Hydroxide/Mg Hydroxide (Magnesium Hydrox/Alum Hydrox 30 Ml Oral.Susp) 30 ml PO Q6H PRN PRN Reason: Heartburn/Nausea Amoxicillin/Clavulanate Potassium (Amoxicillin/Potassium Clav 875 Mg Tablet) 875 mg PO Q12H [facility] Last Admin: 02/24/24 08:55 Dose: 875 mg Apixaban (Apixaban 5 Mg Tablet) 5 mg PO BID [facility] Last Admin: 02/24/24 08:56 Dose: 5 mg Aspirin (Aspirin Enteric Coated 81 Mg Tablet.Dr) 81 mg PO DAILY [facility] Last Admin: 02/24/24 08:55 Dose: 81 mg Atorvastatin Calcium (Atorvastatin Calcium 40 Mg Tablet) 40 mg PO DAILY [facility] Last Admin: 02/24/24 08:55 Dose: 40 mg Carvedilol (Carvedilol 12.5 Mg Tablet) 12.5 mg PO DAILY [facility]; Protocol Last Admin: 02/24/24 08:55 Dose: 12.5 mg Docusate Sodium (Docusate Sodium 100 Mg Capsule) 100 mg PO BID PRN PRN Reason: Constipation Lorazepam (Lorazepam 0.5 Mg Tablet) 0.5 mg PO Q8H PRN PRN Reason: Anxiety Melatonin (Melatonin 3 Mg Tablet) 3 mg PO BEDTIME [facility] Last Admin: 02/23/24 19:45 Dose: 3 mg Melatonin (Melatonin 3 Mg Tablet) 9 mg PO BEDTIME PRN PRN Reason: Insomnia Nitroglycerin (Nitroglycerin 0.4 Mg Tab.Subl) 0.4 mg SUBLINGUAL Q5MX3 PRN PRN Reason: Angina Risperidone (Risperidone 2 Mg Tablet) 2 mg PO BEDTIME [facility] Last Admin: 02/23/24 19:46 Dose: 2 mg Senna (Sennosides 8.6 Mg Tablet) 8.6 mg PO BID PRN PRN Reason: Constipation Sertraline HCl (Sertraline Hcl 25 Mg Tablet) 25 mg PO DAILY [facility] Last Admin: 02/24/24 08:55 Dose: 25 mg Trazodone HCl (Trazodone Hcl 25 Mg Halftab) 25 mg PO BEDTIME MRX1 PRN PRN Reason: Insomnia Last Admin: 02/23/24 19:45 Dose: 25 mg Allergies Allergies Allergy/AdvReac Type Severity Reaction Status Date / Time No Known Allergies Allergy Verified 02/09/24 02:40 Assessment & Plan Assessment & Plan (1) Dementia: Status: Acute Code(s): F03.90 - Unspecified dementia, unspecified severity, without behavioral disturbance, psychotic disturbance, mood disturbance, and anxiety Plan Pt is a 79-year-old male with a complicated PMH significant for?CAD s/p CABG, 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 Patient apparently had been complaining of auditory hallucinations and paranoia, thinking that he was being recorded. Medical consult for admission H&P. ?Patient has no acute medical complaints at this time. Hospital course: 02/23 seems to have improved now on Risperdal; denies AH; staff reports appropriate behaviors Mood disorder Plan as per Psychiatry Chronic aortic graft infection Patient not a candidate for surgical intervention On lifelong suppression with antibiotics Continue Augmentin CAD/HLD Continue aspirin, statin Anticoagulation Unclear why pt is on Eliquis from chart and pt review Continue Eliquis DEMENTIA VASCULAR TYPE Plan 1. Gather collateral information. 2. Continue with the titration of Risperdal increased up to 1 mg p.o. b.i.d. on February 09. We change to Risperdal 2 mg p.o. q.h.s. since he was over-sedated in the morning. 3. Continue with medical treatment. 4. Family meeting for disposition on February 14. 5. Discharge to assisted living facility when available. Patient educated on: diagnosis and medication risk/benefits Informed Consent: understands and further education needed Reason for continued inpatient stay Substantial Risk for: med/psych decompensation Time Spent With Patient Time: Total time managing care of this patient today ____ minutes.
[2024-02-24 19:48] LABS: Glucose, Whole Blood 154 mg/dL (60-115)
[2024-02-24 20:00] VITALS: BP 103/56; PULSE 78; RESP 18; TEMP 37.2; O2SAT 98
[2024-02-24] MEDS: risperiDONE 2 MG TABLET PO (20:47)
[2024-02-24] MEDS: traZODone HCL 25 MG HALFTAB PO (20:47)
[2024-02-24] MEDS: Melatonin 3 MG TABLET PO (20:47)
[2024-02-25 06:06] LABS: Glucose, Whole Blood 109 mg/dL (60-115)
[2024-02-25 07:48] VITALS: BP 114/60; PULSE 65; RESP 18; TEMP 36.1; O2SAT 97
[2024-02-25 08:16] VITALS: BP 117/57; PULSE 74
--- NOTE | 2024-02-25 08:43 | P.PNPSI_ITS ---
Subjective Subjective Date of Service: 02/25/24 Reason For Visit: Unspecified Schizophrenia Spectrum and other Psych Interim History: Met with patient; discussed with team Patient triped on way to bathroom today and nurse reports that he lightly grazed his forehead on the wall.. Patient ended up with a small abrasion on his right hindu; vitals/neuro WNL. Although on anticoagulants, a light Graze should not cause a problem and at this time no need for head CT. Senior Accounts Payable Clerk examined forhead and superficial Patient said that the trip was no big deal and he says it's no problem and that he is fine. Patient pleasant and cooperative on approach; no AH. Mental Status Exam Mental Status Exam Patient Appearance: Appropriate Patient Orientation: Person and Situation Level of Consciousness: Awake and Appropriate Patient Behavior: Cooperative, Passive and Poor Eye Contact Mood Description: Withdrawn Affect Description: Withdrawn Patient Cognition Impaired: Yes Ability to Follow Directions: Good Speech Pattern: Clear Hallucinations: None Delusions: Not Present Thought Process: Distracted and Evasive Thought Content: positive for [place] and positive for Circumstantial Judgement: Fair Diagnostics Vital Signs (24Hr): Vital Signs - 24 hr 02/24/24 08:50 02/24/24 08:55 02/24/24 20:00 Temperature 97.7 F 98.9 F Pulse Rate 85 85 78 Respiratory Rate 16 18 Blood Pressure 102/56 L 102/56 L 103/56 L Pulse Oximetry 97 98 Oxygen Delivery Method Room Air Room Air 02/25/24 07:48 02/25/24 08:16 Temperature 97.0 F Pulse Rate 65 74 Respiratory Rate 18 Blood Pressure 114/60 117/57 L Pulse Oximetry 97 Oxygen Delivery Method Room Air BMI result Body Mass Index 23.2 Labs Labs: Laboratory Results - last 48 hr 02/23/24 02/24/24 02/24/24 19:44 06:22 19:41 POC Glucose 109 95 154 H 02/25/24 05:59 POC Glucose 109 Medications Medications Current Medications Al Hydroxide/Mg Hydroxide (Magnesium Hydrox/Alum Hydrox 30 Ml Oral.Susp) 30 ml PO Q6H PRN PRN Reason: Heartburn/Nausea Amoxicillin/Clavulanate Potassium (Amoxicillin/Potassium Clav 875 Mg Tablet) 875 mg PO Q12H [facility] Last Admin: 02/24/24 20:47 Dose: 875 mg Apixaban (Apixaban 5 Mg Tablet) 5 mg PO BID [facility] Last Admin: 02/24/24 20:47 Dose: 5 mg Aspirin (Aspirin Enteric Coated 81 Mg Tablet.Dr) 81 mg PO DAILY [facility] Last Admin: 02/24/24 08:55 Dose: 81 mg Atorvastatin Calcium (Atorvastatin Calcium 40 Mg Tablet) 40 mg PO DAILY [facility] Last Admin: 02/24/24 08:55 Dose: 40 mg Carvedilol (Carvedilol 12.5 Mg Tablet) 12.5 mg PO DAILY [facility]; Protocol Last Admin: 02/24/24 08:55 Dose: 12.5 mg Docusate Sodium (Docusate Sodium 100 Mg Capsule) 100 mg PO BID PRN PRN Reason: Constipation Lorazepam (Lorazepam 0.5 Mg Tablet) 0.5 mg PO Q8H PRN PRN Reason: Anxiety Melatonin (Melatonin 3 Mg Tablet) 3 mg PO BEDTIME [facility] Last Admin: 02/24/24 20:47 Dose: 3 mg Melatonin (Melatonin 3 Mg Tablet) 9 mg PO BEDTIME PRN PRN Reason: Insomnia Nitroglycerin (Nitroglycerin 0.4 Mg Tab.Subl) 0.4 mg SUBLINGUAL Q5MX3 PRN PRN Reason: Angina Risperidone (Risperidone 2 Mg Tablet) 2 mg PO BEDTIME [facility] Last Admin: 02/24/24 20:47 Dose: 2 mg Senna (Sennosides 8.6 Mg Tablet) 8.6 mg PO BID PRN PRN Reason: Constipation Sertraline HCl (Sertraline Hcl 25 Mg Tablet) 25 mg PO DAILY [facility] Last Admin: 02/24/24 08:55 Dose: 25 mg Trazodone HCl (Trazodone Hcl 25 Mg Halftab) 25 mg PO BEDTIME MRX1 PRN PRN Reason: Insomnia Last Admin: 02/24/24 20:47 Dose: 25 mg Allergies Allergies Allergy/AdvReac Type Severity Reaction Status Date / Time No Known Allergies Allergy Verified 02/09/24 02:40 Assessment & Plan Assessment & Plan (1) Dementia: Status: Acute Code(s): F03.90 - Unspecified dementia, unspecified severity, without behavioral disturbance, psychotic disturbance, mood disturbance, and anxiety Plan Pt is a 79-year-old male with a complicated PMH significant for?CAD s/p CABG, 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 Patient apparently had been complaining of auditory hallucinations and paranoia, thinking that he was being recorded. Medical consult for admission H&P. ?Patient has no acute medical complaints at this time. DEMENTIA VASCULAR TYPE Plan 1. Gather collateral information. 2. Continue with the titration of Risperdal increased up to 1 mg p.o. b.i.d. on February 09. We change to Risperdal 2 mg p.o. q.h.s. since he was over-sedated in the morning. 3. Continue with medical treatment. 4. Family meeting for disposition on February 14. 5. Discharge to assisted living facility when available. Hospital course: 02/23 seems to have improved now on Risperdal; denies AH; staff reports appropriate behaviors 02/[address] to bathroom today and nurse reports that he lightly grazed his forehead on the wall.. Patient ended up with a small abrasion on his right hindu; vitals/neuro WNL. Although on anticoagulants, a light Graze should not cause a problem and at this time no need for head CT. Senior Accounts Payable Clerk examined forhead and superficial Patient said that the trip was no big deal and he says it's no problem and that he is fine. Patient pleasant and cooperative on approach; no AH. Chronic aortic graft infection Patient not a candidate for surgical intervention On lifelong suppression with antibiotics Continue Augmentin CAD/HLD Continue aspirin, statin Anticoagulation Unclear why pt is on Eliquis from chart and pt review Continue Eliquis Patient educated on: diagnosis, medication risk/benefits and medical condition Informed Consent: understands Reason for continued inpatient stay Substantial Risk for: rapid decompensation and med/psych decompensation Time Spent With Patient Time: Total time managing care of this patient today ____ minutes.
[2024-02-25 08:58] VITALS: BP 117/57; PULSE 74
[2024-02-25] MEDS: Aspirin Enteric Coated 81 MG TABLET.DR PO (08:58)
[2024-02-25] MEDS: Apixaban 5 MG TABLET PO ×2 (08:58→20:23)
[2024-02-25] MEDS: Sertraline HCL 25 MG TABLET PO (08:58)
[2024-02-25] MEDS: Amoxicillin/Potassium Clav 875 MG TABLET PO ×2 (08:58→20:23)
[2024-02-25] MEDS: carvediloL 12.5 MG TABLET PO (08:58)
[2024-02-25] MEDS: Atorvastatin Calcium 40 MG TABLET PO (08:58)
--- NOTE | 2024-02-25 09:42 | PC.NURSE ---
At 07:45 this RN administering medications to pt's roommate and witnessed pt. exiting bathroom, where the door was partially obstructed by clothing bin that roommate had placed there, and he tripped over the bin and fell to his right side, grazing his right presybeterian on the wall on the way down. He was able to move all extremities and get himself off of the floor. VSS and neuros WNL. He denied pain but endorsed mild dizziness. Ortho BPs assessed and recorded. Clothing bin was removed from room. Dr. Negron, nursing malt liquors sales supervisor, and HCP Salvador Roger notified.
[2024-02-25 20:00] VITALS: BP 119/57; PULSE 67; TEMP 37; O2SAT 67
[2024-02-25 20:01] LABS: Glucose, Whole Blood 153 mg/dL (60-115)
[2024-02-25] MEDS: risperiDONE 2 MG TABLET PO (20:23)
[2024-02-25] MEDS: Melatonin 3 MG TABLET PO (20:23)
[2024-02-26 06:03] LABS: Glucose, Whole Blood 100 mg/dL (60-115)
[2024-02-26 08:15] VITALS: BP 132/78; PULSE 72; RESP 18; TEMP 36.2; O2SAT 98
[2024-02-26 08:52] VITALS: BP 132/78; PULSE 72
[2024-02-26] MEDS: Aspirin Enteric Coated 81 MG TABLET.DR PO (08:52)
[2024-02-26] MEDS: Apixaban 5 MG TABLET PO (08:52)
[2024-02-26] MEDS: Atorvastatin Calcium 40 MG TABLET PO (08:52)
[2024-02-26] MEDS: carvediloL 12.5 MG TABLET PO (08:52)
[2024-02-26] MEDS: Sertraline HCL 25 MG TABLET PO (08:52)
[2024-02-26] MEDS: Amoxicillin/Potassium Clav 875 MG TABLET PO (08:57)
--- NOTE | 2024-02-26 12:45 | P.DS_ITS ---
DS: Providers Provider Date of Service: 02/26/24 Date of admission: 02/08/24 22:49 Date of discharge: 02/26/24 Primary care physician: Ubaldo Freeman MD Admitting clinician: Imtiaz Pyle Consults: 02/08/24 21:53 Consult to Hospitalist Routine Comment: Consulting Provider: Hospitalist Reason For Exam: new admit DS: Diagnosis Discharge Diagnosis (1) Dementia: Status: Acute DS: Medications Discharge Medications Home Medications: Home Medications ?Medication ?Instructions ?Recorded ?Confirmed acetaminophen 650 mg tablet 650 mg PO Q8H PRN Pain 02/09/24 02/09/24 amoxicillin 875 mg-potassium 1 tab PO Q12H 02/09/24 02/09/24 clavulanate 125 mg tablet apixaban 5 mg tablet (Eliquis) 5 mg PO BID 02/09/24 02/09/24 aspirin 81 mg tablet 81 mg PO DAILY 02/09/24 02/09/24 atorvastatin 40 mg tablet 40 mg PO DAILY 02/09/24 02/09/24 carvedilol 12.5 mg tablet 12.5 mg PO DAILY 02/09/24 02/09/24 docusate sodium 100 mg capsule 100 mg PO BID PRN Constipation 02/09/24 02/09/24 ibuprofen 400 mg tablet 400 mg PO Q8H PRN Pain (Scale 02/09/24 02/09/24 Score 4-6) lorazepam 1 mg tablet (Ativan) 1 mg PO TID PRN Anxiety 02/09/24 02/09/24 melatonin 3 mg tablet 9 mg PO BEDTIME PRN Insomnia 02/09/24 02/09/24 risperidone 0.5 mg tablet 0.5 mg PO BID 02/09/24 02/09/24 sennosides 8.6 mg tablet (senna) 8.6 mg PO BID PRN Constipation 02/09/24 02/09/24 sertraline 25 mg tablet 25 mg PO DAILY 02/09/24 02/09/24 sertraline 50 mg tablet 50 mg PO DAILY 02/09/24 02/09/24 Mental Status Exam Mental Status Exam Patient Appearance: Appropriate Patient Orientation: Person and Situation Level of Consciousness: Awake and Appropriate Patient Behavior: Guarded and Passive Mood Description: Withdrawn Affect Description: Constricted Patient Cognition Impaired: Yes Ability to Follow Directions: Good Speech Pattern: Clear Hallucinations: None Delusions: Not Present Thought Process: Distracted and Slowed Thinking Thought Content: positive for [place] and positive for Circumstantial Judgement: Fair Data Data Completed and Pending Completed studies during hospitalization [Text1]: 02/19/24 02/20/24 02/20/24 19:41 05:58 19:51 POC Glucose 161 H 110 148 H 02/21/24 02/21/24 02/22/24 06:05 20:12 06:22 POC Glucose 137 H 132 H 112 02/22/24 02/23/24 02/23/24 19:52 06:25 19:44 POC Glucose 145 H 96 109 02/24/24 02/24/24 02/25/24 06:22 19:41 05:59 POC Glucose 95 154 H 109 02/25/24 02/26/24 19:40 05:43 POC Glucose 153 H 100 DS: Summary Hospital Course Hospital Course: The patient is a 79 year old male, single, with good family support with a past history of alcohol use disorder in sustained remission and past history of CVA. The patient also has a history of dementia that it most likely cardiovascular. A few years ago he was treated Risperdal since he is suddenly present psychotic symptoms after a CVA. Later on he was discontinue slowly since the symptoms disappeared. The patient was brought to the emergency room for psychotic symptoms. Please see the HPI of the admission note for further details. On admission, the patient was very pleasant cooperative and he reported some auditory hallucinations with paranoia. Historically the patient responded fairly well to Risperdal that was titrated slowly up to 2 mg p.o. q.h.s. with no side effects. Since there is no evidence of extrapyramidal symptoms. We had several family meetings and we discussed the diagnosis and treatment plan. The family is in agreement to transfer him to an assisted living facility. The patient was able to participate in groups he reports resolution of psychosis and since there were no safety concerns discharge planning was discussed. It is clear also the patient has dementia that has worsen it in the last year. At this moment there are no safety concerns. Time spent discussing smoking cessation with patient: 3 to 10 minutes Status at Discharge Cognitive/behavioral status at discharge: Impaired at baseline Functional status at discharge: independent ambulation Overall status at discharge: patient is back to baseline Time Spent with Patient Time attestation: Total time managing care of this patient today ___30_ minutes. Time spent: Less than 30 minutes Discharge Plan Discharge Patient Disposition: er [facility] [place] Discharge Diagnosis: Psychosis NOS Dementia Referrals: Letitia Fatima NP [Other] - 03/12/24 3:00 pm (Your first in office appointment is scheduled with Letitia Fatima NP for 03/12/24 at 3pm. ) [facility] [Other] - 02/26/24 2:30 pm (Transfer to [facility].) Ubaldo Freeman MD [Primary Care Provider] - 03/11/24 3:20 pm (Your follow up has been scheduled with Salma Joseph NP on Monday03/11/24 at 3:20pm) Discharge Medications: New aspirin 81 mg Tablet,Delayed Release (Dr/Ec) 81 mg PO DAILY 30 Days Qty: 30 0RF nitroglycerin [Nitrostat] 0.4 mg Tablet, Sublingual 0.4 mg sublingual Q5MX3 PRN (Reason: Angina) 30 Days Qty: 30 0RF risperidone 2 mg Tablet 2 mg PO BEDTIME 30 Days Qty: 30 0RF lorazepam 0.5 mg Tablet 0.5 mg PO Q8H PRN (Reason: Anxiety) 30 Days Qty: 30 0RF Continued atorvastatin 40 mg tablet 40 mg PO DAILY 30 Days Qty: 30 0RF sennosides [senna] 8.6 mg Tablet 8.6 mg PO BID PRN (Reason: Constipation) Qty: 30 0RF carvedilol 12.5 mg tablet 12.5 mg PO DAILY 30 Days Qty: 30 0RF melatonin 3 mg Tablet 9 mg PO BEDTIME PRN (Reason: Insomnia) Qty: 90 0RF docusate sodium 100 mg Capsule 100 mg PO BID PRN (Reason: Constipation) Qty: 60 0RF sertraline 25 mg tablet 25 mg PO DAILY 30 Days Qty: 30 0RF Rx Instructions: total dose of 75 amoxicillin-pot clavulanate 875-125 mg tablet 1 tab PO Q12H 30 Days Qty: 60 0RF Rx Instructions: Indicated for suppression of Aortic graft infection Eliquis 5 mg tablet 5 mg PO BID Qty: 60 0RF Discontinued sertraline 50 mg tablet 50 mg PO DAILY Rx Instructions: total dose of 75 mg aspirin 81 mg Tablet 81 mg PO DAILY lorazepam [Ativan] 1 mg Tablet 1 mg PO TID PRN (Reason: Anxiety) ibuprofen 400 mg Tablet 400 mg PO Q8H PRN (Reason: Pain (Scale Score 4-6)) acetaminophen 650 mg Tablet 650 mg PO Q8H PRN (Reason: Pain) risperidone 0.5 mg Tablet 0.5 mg PO BID Discharge Orders: Discharge Order (Routine); Ordered 02/26/24 Ordered By: Imtiaz Pyle Activity on Discharge: As tolerated Stand Alone Forms: Patient Portal Discharge page Print Language: Bengali Care Plan Goals: Care plan goals achieved in this admission, psychosis was resolved with Risperdal 2 mg p.o. q.h.s. Health Concerns: Continue treatment with primary care physician Plan of Treatment: Continue psychiatric treatment as an outpatient. Assessment: Elderly male with a past history of vascular dementia was brought to the facility after he relapsed on psychotic symptoms, most likely due to vascular disease. The patient was restarted on Risperdal titrated up to 2 mg p.o. q.h.s. resolution of psychosis. At this moment no evidence of psychosis. The patient remains with chronic dementia vascular type that has worsened in the last months. The patient is discharged to the community to an assisted living facility as per family's request.
== END 2024-02-26 15:17 | DRG 885 ==
PROVIDERS: Admitting Provider Clinical Nurse Specialist Psychiatric/Mental Health; PCP Internal Medicine; Visit Provider Clinical Nurse Specialist Psychiatric/Mental Health
DX: F29 Unspecified psychosis not due to a substance or known physiological condition (principal); I25.10 Atherosclerotic heart disease of native coronary artery without angina pectoris; E78.5 Hyperlipidemia, unspecified; F01.50 Vascular dementia, unspecified severity, without behavioral disturbance, psychotic disturbance, mood disturbance, and anxiety; Z95.1 Presence of aortocoronary bypass graft; Z95.0 Presence of cardiac pacemaker; Z79.2 Long term (current) use of antibiotics; Z79.01 Long term (current) use of anticoagulants; Z79.82 Long term (current) use of aspirin; Z79.899 Other long term (current) drug therapy
CPT/HCPCS: 82947; 93005

== ENCOUNTER → 2024-02-08 22:49 | Outpatient (BNV) | payer MEDICARE, SELFPAY | PROVIDERS: Admitting Provider Clinical Nurse Specialist Psychiatric/Mental Health; PCP Internal Medicine; Visit Provider Psychiatry & Neurology Psychiatry | DX: F03.90 Unspecified dementia, unspecified severity, without behavioral disturbance, psychotic disturbance, mood disturbance, and anxiety (principal) | CPT/HCPCS: 99231 ==

== ENCOUNTER → 2024-02-08 22:49 | Outpatient (BNV) | payer MEDICARE, SELFPAY | PROVIDERS: Admitting Provider Clinical Nurse Specialist Psychiatric/Mental Health; PCP Internal Medicine; Visit Provider Student in an Organized Health Care Education/Training Program | DX: I44.2 Atrioventricular block, complete (principal); T82.7XXA Infection and inflammatory reaction due to other cardiac and vascular devices, implants and grafts, initial encounter; Z95.1 Presence of aortocoronary bypass graft; Z95.0 Presence of cardiac pacemaker | CPT/HCPCS: 99222 ==

== ENCOUNTER → 2024-02-08 22:49 | Outpatient (BNV) | payer MEDICARE, SELFPAY | PROVIDERS: Admitting Provider Clinical Nurse Specialist Psychiatric/Mental Health; PCP Internal Medicine; Visit Provider Psychiatry & Neurology Psychiatry | DX: F03.90 Unspecified dementia, unspecified severity, without behavioral disturbance, psychotic disturbance, mood disturbance, and anxiety (principal) | CPT/HCPCS: 90792; 99231; 99232; 99238 ==